=== PATIENT | female | born 1960 | race Caucasian/White ===

== ENCOUNTER → 2016-08-27 | Outpatient (CLI) | payer BC ==
[~2016-08-27] MED LIST: ASPI81TA28 PO; LPT40 PO
--- NOTE | 2016-08-27 09:21 | DIAGNOSTIC IMAGING REPORT ---
THYROID ULTRASONOGRAPHY CLINICAL HISTORY: Neck swelling/mass. COMPARISON STUDY: None FINDINGS: The right lobe of thyroid measures 51 x 14 x 16 mm. There are 3 predominantly cystic nodules measuring 7 mm, 5 mm, 3 mm in diameter respectively. The left lobe measured 45 x 14 x 7 mm. There is a 2 mm hypoechoic left lobe nodule. There are no pathologic masses identified in the area of clinical concern. IMPRESSION: Multinodular thyroid gland. There are no suspicious nodules by size or morphologic criteria. Electronically signed by: Sterlign Prather M.D. 08/27/2016 9:19 AM Dictated Date/Time: 08/27/2016 9:16 AM
== END | disposition home or self-care (01) ==
LOC: C.ULTR 08:42
PROVIDERS: ATTEND Family Medicine
DX: R22.1 Localized swelling, mass and lump, neck (principal)

== ENCOUNTER → 2017-12-07 | Outpatient (CLI) | payer OTHER ==
--- NOTE | 2017-12-07 19:59 | DIAGNOSTIC IMAGING REPORT ---
TWO VIEW CHEST CLINICAL HISTORY: Bronchitis. FINDINGS: PA and lateral chest radiographs are compared to study dated 12/11/2014. The cardiomediastinal silhouette is unremarkable. The lungs and pleural spaces are clear. There is no pneumothorax. The bony thorax appears intact. IMPRESSION: No active disease in the chest. Electronically signed by: Jameson Gonzalez M.D. 12/07/2017 7:58 PM Dictated Date/Time: 12/07/2017 7:57 PM
== END | disposition home or self-care (01) ==
LOC: C.RAD 19:19
PROVIDERS: ATTEND Family Medicine
DX: J40 Bronchitis, not specified as acute or chronic (principal)

== ENCOUNTER 2024-11-13 09:12 | Inpatient (IN) ==
--- NOTE | 2024-11-13 09:57 | Emergency Department Note ---
History of Present Illness General Chief complaint: Abdominal Pain Stated complaint: SERVERE ABDOMINAL PAIN Time Seen by Provider: 11/13/24 09:43 History of Present Illness Maximum Pain Intensity: 7 This is a 64-year-old female who presents to the emergency department via private vehicle with complaints of "abdominal pain, blood in stool". Patient went bed last night and felt fine. She woke around 2 AM with severe generalized abdominal pain across the abdomen. She then went to the bathroom and had profuse diarrhea that has continued. She now has a bloody mucousy stool. No history of ulcerative colitis or Crohn's. She takes baby aspirin but no anticoagulants. No close contact with similar symptoms. No fevers. She does feel chilled. No chest pain or shortness of breath. She does have public water. No private well, is on public water. Home Medications Medication Instructions Recorded Confirmed Type amlodipine 5 mg tablet 5 mg PO DAILY 01/12/19 11/13/24 History aspirin 81 mg tablet,delayed 81 mg PO DAILY 01/12/19 11/13/24 History release atorvastatin 40 mg tablet 80 mg PO DAILY 01/12/19 11/13/24 History tirzepatide 15 mg/0.5 mL 15 mg subcut WK 11/13/24 11/13/24 History subcutaneous pen injector (Mounjaro) Allergies Allergy/AdvReac Type Severity Reaction Status Date / Time No Known Allergies Allergy Unknown NONE Verified 02/16/19 07:14 Past Med/Surg History Problem List (Updated 11/13/24 @ 16:52 by Chandler Gill PA-C) Bloody diarrhea (Acute) Abdominal pain, acute, generalized (Acute) Colitis (Acute) Encounter for pre-operative examination Fibroids (Chronic) Menorrhagia (Chronic) Transient ischemic attack (TIA) (Acute) Medical History (Updated 11/13/24 @ 16:52 by Chandler Gill PA-C) Morbid obesity Hypothyroidism Hearing deficit BL HENDERSON Hypertension Hyperlipidemia Surgical History History of total abdominal hysterectomy and bilateral salpingo-oophorectomy History of tubal ligation History of tonsillectomy History of colonoscopy Family History Brother Family hx of colon cancer Social History Smoking Status: Never smoker Second Hand Exposure: No; Do You Dip or Chew Tobacco: No; Hx Alcohol Use: No Hx Substance Use: No Preferred Language: Malaysian Communication Ability: Effective Software Quality Tester Required: No Beliefs That Will Affect Care: None Current Living Situation: Spouse Other Information That Helps Us Care for You: No Feels Safe at Home: Yes Safety Concerns: Feels Safe At This Time Assistive Devices: Glasses and Hearing Aid - Bilateral Review of Systems A total of 10 systems reviewed and were otherwise negative Physical Exam Vital Signs Vital Signs - 24 hr 11/13/24 09:27 11/13/24 09:49 11/13/24 10:00 Temperature 36.4 C L Temperature Source Oral Pulse Rate 105 H 96 H Pulse Rate [Apical] 89 Respiratory Rate 18 18 Respiratory Effort / Characteristics Non-Labored Spontaneous Respiratory Depth Normal Blood Pressure 172/120 H Blood Pressure [Right Arm] 153/76 H Blood Pressure Mean 137 Blood Pressure Mean [Right Arm] 101 Blood Pressure Position Sitting Blood Pressure Position [Right Arm] Semi-fowlers Pulse Oximetry 99 97 Pulse Oximetry [Right Index Finger] Oxygen Delivery Method Room Air Room Air Oxygen Delivery Method [Right Index Finger] Sepsis Recent Fever Within 48 Hours No Sepsis New/Unexplained Change in Mental Status No Sepsis Action Taken by Nursing No Action Required 11/13/24 11:07 11/13/24 13:00 11/13/24 14:04 Temperature Temperature Source Pulse Rate Pulse Rate [Apical] 96 H 100 H Respiratory Rate 21 19 Respiratory Effort / Characteristics Non-Labored Spontaneous Non-Labored Spontaneous Respiratory Depth Normal Normal Blood Pressure Blood Pressure [Right Arm] 166/87 H 162/96 H Blood Pressure Mean Blood Pressure Mean [Right Arm] 113 118 Blood Pressure Position Blood Pressure Position [Right Arm] Semi-fowlers Semi-fowlers Pulse Oximetry 99 94 Pulse Oximetry [Right Index Finger] 97 Oxygen Delivery Method Room Air Room Air Oxygen Delivery Method [Right Index Finger] Room Air Sepsis Recent Fever Within 48 Hours Sepsis New/Unexplained Change in Mental Status Sepsis Action Taken by Nursing VITAL SIGNS - Vital signs and nursing notes were reviewed. Hypertensive, stable and afebrile GENERAL - 64-year-old female appearing her stated age who is in no acute distress but appears to be in pain. Communicates well with provider and answers questions appropriately. SKIN - Without rashes. No meningeal or petechial rash. HEAD - NC/AT. EYES - PERRL with EOMI bilaterally. Sclera anicteric. EARS - No deformities of external structures noted on gross examination bilaterally. External auditory canals without discharge or otorrhea. Tympanic membranes pearly viera without retraction or bulging. No fluid or purulent material visualized behind the TM. Handle of malleus, umbo, cone of light, pars tensa/flaccid all easily visualized. NOSE - Midline and without cyanosis. No epistaxis or purulent drainage noted. Septum midline without deviation or septal hematoma noted. MOUTH/OROPHARYNX - Without perioral cyanosis. NECK - Neck with FROM. No nuchal rigidity. LUNGS - CTA CARDIAC - RRR ABDOMEN - Abdominal contour normal without pulsations or visible masses. BS normoactive all four quadrants. Generalized abdominal tenderness to palpation. No guarding. No rigidity. EXTREMITIES - No clubbing or peripheral cyanosis. +5/5 strength noted in UE/LE bilaterally. NEUROLOGIC - Cranial nerves II through XII grossly intact. PSYCH -alert, oriented and pleasant on exam Course Administered Medications Sodium Chloride (Nss) 1,000 mls @ 100 mls/hr IV .Q10H KANDICE Stop: 11/14/24 09:59 Last Admin: 11/13/24 14:13 Dose: 100 mls/hr Documented By: JENNIFER Ceftriaxone Sodium (Rocephin) 2,000 mg in 50 mls @ 100 mls/hr IV Q24H KANDICE Stop: 11/23/24 15:29 Last Admin: 11/13/24 16:09 Dose: 100 mls/hr Documented By: ARGENISF Discontinued Medications Sodium Chloride (Nss) 1,000 mls @ 999 mls/hr IV .Q1H1M ONE Stop: 11/13/24 10:57 Last Infusion: 11/13/24 12:04 Dose: Infused Documented By: Admin: 11/13/24 10:16 Dose: 999 mls/hr Documented By: JONATAN Ioversol (Optiray 320 100ml) 93 ml IV ONCE ONE Stop: 11/13/24 11:02 Last Admin: 11/13/24 11:02 Dose: 93 ml Documented By: FABIOLA Morphine Sulfate (Morphine Sulfate 4 Mg/Ml 1 Ml Carp\\Vial) 2 mg IV NOW STA Stop: 11/13/24 12:30 Last Admin: 11/13/24 12:36 Dose: 2 mg Documented By: JONATAN Ondansetron HCl (Ondansetron Inj 2 Mg/Ml 2 Ml Vial) 4 mg IV NOW STA Stop: 11/13/24 09:58 Last Admin: 11/13/24 10:16 Dose: 4 mg Documented By: JONATAN Medical Decision Making Laboratory Data 11/13/24 09:48 11/13/24 09:48 Lab Results 11/13/24 11/13/24 11/13/24 Range/Units 09:48 10:32 11:29 WBC 13.06 H (4.8-10.8) K/ul RBC 5.58 H (4.20-5.40) M/uL Hgb 16.1 H (12.0-16.0) g/dl Hct 46.5 (37.0-47.0) % MCV 83.3 (80.0-100.0) fL MCH 28.9 (25.0-34.0) pg MCHC 34.6 (32.0-36.0) g/dL RDW Std Deviation 41.3 (36.4-46.3) fL RDW Coeff of Delon 13.6 (11.5-14.5) % Plt Count 329 (130-400) K/uL MPV 10.6 (9.4-12.4) fL Immature Gran % (Auto) 0.2 % Neut % (Auto) 90.3 % Lymph % (Auto) 6.8 % Canadian % (Auto) 2.5 % Eos % (Auto) 0.0 % Baso % (Auto) 0.2 % Neut # (Auto) 11.80 H (1.40-6.50) K/uL Lymph # (Auto) 0.89 L (1.20-3.40) K/uL Canadian # (Auto) 0.32 (0.11-0.59) K/uL Eos # (Auto) 0.00 (0.00-0.50) K/uL Baso # (Auto) 0.02 (0.00-0.20) K/uL Immature Gran # (Auto) 0.03 (0.01-0.20) K/uL PT Cancelled 10.4 INR Cancelled 1.0 APTT Cancelled 26 PTT Ratio Cancelled 1.0 Sodium 138 (136-145) mmol/L Potassium 4.0 (3.5-5.1) mmol/L Chloride 105 (98-107) mmol/L Carbon Dioxide 24 (21-32) mmol/L Anion Gap 9 (3-11) BUN 18 (6-23) mg/dl Creatinine 0.75 (0.6-1.2) mg/dl Est Cr Clr Drug Dosing 85.9 ml/min eGFR 89.96 BUN/Creatinine Ratio 24.0 H (10-20) Glucose 121 H (70-99(Fasting)) mg/dl Lactate 0.9 (0.4-2.0) mmol/L Calcium 9.9 (8.6-10.3) mg/dl Magnesium 2.0 (1.7-2.4) mg/dl Total Bilirubin 0.8 (0.2-1.0) mg/dl AST 30 (13-39) U/L ALT 33 (7-52) U/L Alkaline Phosphatase 73 (34-104) U/L Total Protein 8.2 (6.0-8.3) gm/dl Albumin 4.8 (3.4-5.0) gm/dl Globulin 3.4 (2.5-4.0) gm/dl Albumin/Globulin Ratio 1.4 (0.9-2) Lipase 38 (11-82) U/L Stl C. cayetanensis PCR Not Detected (NotDetected) Stool Rotavirus A PCR Not Detected (NotDetected) Stl Adenov F 40/41 PCR Not Detected (NotDetected) Stool Astrovirus (PCR) Not Detected (NotDetected) Stool Campylobacter PCR Not Detected (NotDetected) Stl C. diff Tox B Gene Negative Cdiff Gene (Neg) Stool Cryptosporidium PCR Not Detected (NotDetected) Stl E.coli Shiga Tox PCR Not Detected (NotDetected) Stl Enterotoxigenic E PCR Not Detected (NotDetected) Stool EPEC (PCR) Not Detected (NotDetected) Stool EAEC (PCR) Not Detected (NotDetected) Stl E. histolytica PCR Not Detected (NotDetected) Stool Giardia Lamblia PCR Not Detected (NotDetected) Stool Salmonella PCR Not Detected (NotDetected) Stool Sapovirus (PCR) Not Detected (NotDetected) Stl P. shigelloides PCR Not Detected (NotDetected) Stl Shigella/EIEC PCR Not Detected (NotDetected) St Y.enterocolitica PCR Not Detected (NotDetected) Stool Vibrio (PCR) Not Detected (NotDetected) Stl Vibrio cholerae PCR Not Detected (NotDetected) Stl Norovirus GI/GII PCR Not Detected (NotDetected) Imaging Data Radiologist's Impression: Abdomen/Pelvis CT 11/13/24 09:[address] WITH IV CONTRAST CT DOSE: 1249.02 mGy.cm HISTORY: Acute generalized abdominal pain abd pain, frequent diarrhea, blood in stool TECHNIQUE: Multiaxial CT images of the abdomen and pelvis were performed following the IV administration of 93 cc of Optiray, A dose lowering technique was utilized adhering to the principles of ALARA. COMPARISON STUDY: None. FINDINGS: Mild cardiomegaly. Clear lung bases. There is no pneumatosis or pneumoperitoneum. Unremarkable spleen, pancreas and adrenal glands. Cholelithiasis without CT evidence of acute cholecystitis. Patency of the hepatic and portal veins. There are a few scattered hepatic cysts. No solid liver lesions are seen. Unremarkable kidneys. There is no hydronephrosis. 11 mm exophytic cyst of the anterior interpolar right kidney. Decompressed urinary bladder with mild wall thickening. Hysterectomy. Atherosclerosis of the aorta without aneurysm. There is no lymphadenopathy. Tiny hiatal hernia. There is no bowel obstruction. There is wall thickening noted throughout the transverse and descending colon with mild adjacent pericolonic stranding. No CT evidence of acute appendicitis. Tiny fat filled umbilical hernia. No acute fracture is seen. IMPRESSION: 1. Findings compatible with a mild nonspecific likely infectious or inflammatory colitis. 2. No bowel obstruction or pneumoperitoneum. 3. Cholelithiasis. ACT 112: Negative or not required by law. The above report was generated using voice recognition software. It may contain grammatical, syntax or spelling errors. Electronically signed by: Walt Robles M.D. 11/13/2024 11:50 AM MDM Narrative Patient was seen and evaluated as above in room B11b. Review was performed of triage nursing notes and vital signs. After obtaining a thorough history and physical examination the above work up was performed. Patient presents to us today for evaluation of abdominal pain and diarrhea. There is no blood in the stool she notes, bright red. She appears to be in pain on examination. She is tender in the abdomen. No chest pain or shortness of breath. No anticoagulant use. Options of care were discussed with the patient. IV access was established. Labs were drawn. Initially patient wanted to hold off on IV analgesia and was receptive to IV fluids and IV Zofran. Later in her stay she did ask for something for pain and was given IV morphine. There is leukocytosis 13.06. There is what appears to be some hemoconcentration with hemoglobin of 16.1, no previous to compare in our EMR. Coags normal. No evidence of kidney or liver failure. Evidence of dehydration noting BUN/creatinine ratio 24. Hyperglycemia 121. Magnesium normal. Lactate within normal range, making ischemic process less likely. Lipase normal. Stool studies negative. Patient continues with abdominal pain. CT scan was obtained. Results as above. Findings compatible with mild nonspecific likely infectious or inflammatory colitis. With patient's continued and worsening symptoms, I do believe that further evaluation and management in the inpatient setting is warranted. Case discussed with the hospitalist service. Please refer to further documentation regarding her stay. GCS: 15 In the evaluation and treatment of this patient the following differential diagnoses were entertained: Viral gastroenteritis, bacterial gastroenteritis, ischemic colitis, electrolyte disturbance, dehydration, anemia, acute GI bleed among others Impression & Plan Colitis, Abdominal pain, acute, generalized, Bloody diarrhea Discharge Plan Visit Data Chief Complaint: Abdominal Pain Stated Complaint: SERVERE ABDOMINAL PAIN ED Provider: Dilip Gautam ED Midlevel Provider: Chandler Gill Discharge Problem: Colitis, Abdominal pain, acute, generalized, Bloody diarrhea Patient Disposition: Admitted As Inpatient Condition: Good Discharge Instructions Interventions: ED Discharge Assessment Last Done: 11/13/24 14:45
[2024-11-13] MEDS: ONDANSETRON INJ 2 MG/ML 2 ML VIAL IV STA (10:16)
[2024-11-13] MEDS: SODIUM CHLORIDE 0.9% 1,000 ML IV ONE (10:16)
[2024-11-13 10:19] LABS: Hematocrit (blood only) 46.5 % (37.0-47.0); Hemoglobin 16.1 g/dl (12.0-16.0); Mean Corpuscular Hemoglobin 28.9 pg (25.0-34.0); Mean Corpuscular Hgb Conc 34.6 g/dL (32.0-36.0); Mean Corpuscular Volume 83.3 fL (80.0-100.0); Mean Platelet Volume 10.6 fL (9.4-12.4); Platelet Count 329 K/uL (130-400); RDW Coefficient of Variation 13.6 % (11.5-14.5); RDW Standard Deviation 41.3 fL (36.4-46.3); Red Blood Count 5.58 M/uL (4.20-5.40); White Blood Count 13.06 K/ul (4.8-10.8)
[2024-11-13 10:36] LABS: Albumin Level 4.8 gm/dl (3.4-5.0); Bilirubin,Total 0.8 mg/dl (0.2-1.0); Calcium 9.9 mg/dl (8.6-10.3)
[2024-11-13 10:42] LABS: Albumin Globulin Ratio 1.4 (0.9-2); Creatinine Clr Calc Pharmacy 85.9 ml/min; Globulin 3.4 gm/dl (2.5-4.0); Total Protein 8.2 gm/dl (6.0-8.3)
[2024-11-13 10:57] LABS: Basophils # (auto) 0.02 K/uL (0.00-0.20); Basophils % (auto) 0.2 %; Immature Granulocytes # (auto) 0.03 K/uL (0.01-0.20); Immature Granulocytes % (auto) 0.2 %; Lymphocytes # (auto) 0.89 K/uL (1.20-3.40); Lymphocytes % (auto) 6.8 %; Monocytes # (auto) 0.32 K/uL (0.11-0.59); Monocytes % (auto) 2.5 %; Neutrophils % (auto) 90.3 %
[2024-11-13] MEDS: OPTIRAY 320 100ml IV ONE (11:02)
--- NOTE | 2024-11-13 11:52 | CT Scan Report ---
ABDOMEN AND PELVIS CT WITH IV CONTRAST CT DOSE: 1249.02 mGy.cm HISTORY: Acute generalized abdominal pain abd pain, frequent diarrhea, blood in stool TECHNIQUE: Multiaxial CT images of the abdomen and pelvis were performed following the IV administrat ion of 93 cc of Optiray, A dose lowering technique was utilized adhering to the principles of ALARA. COMPARISON STUDY: None. FINDINGS: Mild cardiomegaly. Clear lung bases. There is no pneumatosis or pneumoperitoneum. Unremarka ble spleen, pancreas and adrenal glands. Cholelithiasis without CT evidence of acute cholecystitis. P atency of the hepatic and portal veins. There are a few scattered hepatic cysts. No solid liver lesio ns are seen. Unremarkable kidneys. There is no hydronephrosis. 11 mm exophytic cyst of the anterior interpolar rig ht kidney. Decompressed urinary bladder with mild wall thickening. Hysterectomy. Atherosclerosis of t he aorta without aneurysm. There is no lymphadenopathy. Tiny hiatal hernia. There is no bowel obstruction. There is wall thickening noted throughout the neves sverse and descending colon with mild adjacent pericolonic stranding. No CT evidence of acute appendi citis. Tiny fat filled umbilical hernia. No acute fracture is seen. IMPRESSION: 1. Findings compatible with a mild nonspecific likely infectious or inflammatory colitis. 2. No bowel obstruction or pneumoperitoneum. 3. Cholelithiasis. ACT 112: Negative or not required by law. The above report was generated using voice recognition software. It may contain grammatical, syntax o r spelling errors. Electronically signed by: Walt Robles M.D. 11/13/2024 11:50 AM
[2024-11-13 12:05] LABS: Partial Thromboplastin Time 26 Seconds (21-31); Prothrombin Time 10.4 Seconds (9.0-12.0)
[2024-11-13 12:18] LABS: Adenovirus F 40/41 PCR Not Detected (NotDetected); Astrovirus PCR Not Detected (NotDetected); Campylobacter PCR Not Detected (NotDetected); Cryptosporidium PCR Not Detected (NotDetected); Cyclospora cayetanensis PCR Not Detected (NotDetected); Entamoeba histolytica PCR Not Detected (NotDetected); Enteroaggregative E.coli(EAEC) Not Detected (NotDetected); Enteropathogenic E.coli (EPEC) Not Detected (NotDetected); Enterotoxigenic E.coli (ETEC) Not Detected (NotDetected); Giardia lamblia PCR Not Detected (NotDetected); Norovirus GI/GII PCR Not Detected (NotDetected); Plesiomonas shigelloides PCR Not Detected (NotDetected); Rotavirus A PCR Not Detected (NotDetected); Salmonella PCR Not Detected (NotDetected); Sapovirus PCR Not Detected (NotDetected); Shiga-like Toxin E.coli (STEC) Not Detected (NotDetected); Shigella/Enteroinvasive E.coli Not Detected (NotDetected); Vibrio cholerae PCR Not Detected (NotDetected); Vibrio species PCR Not Detected (NotDetected); Yersinia enterocolitica PCR Not Detected (NotDetected)
[2024-11-13] MEDS: MoRPHine SULFATE 4 MG/ML 1 ML CARP\\VIAL IV STA (12:36)
--- OUTSIDE RECORDS SUMMARY | 2024-11-13 13:05 | External Medical Summary ---
Author Name Unknown Address Unknown Organization : Laboratory Report Ordering Provider Test Date Status Jaylon Han Elva 06/25/2024 10:21:00 Fin al Observation Date Value Abnormality Reference (Units ) Status Non HDL Chol 06/26/2024 12:11:00 121 <130 (m g/dL (calc)) Final For patients with diabetes p padmini 1 major ASCVD risk
factor, treating to a non-HDL-C goal of <100 mg/dL
(LDL-C of <70 mg/dL) is considered a therapeutic
option.

Specimen Received d/t: 06/25/2024 22:53:00

Lab test performed by:
[facility], [facility]
[address]
[place] [phone]
Elio Orantes MD Cholesterol [Mass/volume] in Serum or Plasma 06/26/2024 12:11:00 156 <200 (mg/dL) Final
Specimen Received d/t: 06/25/2024 22:53:00

Lab test performed by:
[facility], [facility]
[address]
[place] [phone]
Elio Orantes MD Cholesterol.total/Cholestero l in HDL [Mass Ratio] in Serum or Plasma 06/26/2024 12:11:00 4.5 <5 .0 ((calc)) Final
Specimen Received d/t: 06/25/2024 22:53:00

Lab test performed by:
[facility], [facility]
[address]
[place] [address]
Elio Orantes MD Triglyceride [Mass/volume] in Serum or Plasma 06/26/2024 12:11:00 167 Above high normal <150 (mg/dL) Fin al
Specimen Received d/t: 06/25/2024 22:53:00

Lab test performed by:
[facility], [facility]
[address]
[place] [address]
Elio Orantes MD Cholesterol in HDL [Mass/volume] in Serum or Plasma 06/26/2024 12:11:00 35 Below low normal > OR = 50 (mg/dL) Final
Specimen Received d/t: 06/25/2024 22:53:00

Lab test performed by:
[facility], [facility]
[address]
[place] [address]
Elio Orantes MD LDL Chol 06/26/2024 12:11:00 94 (mg/dL (ca lc)) Final Reference range: <100
<b r/>Desirable range <100 mg/dL for primary prevention;
<70 mg/dL for patients with CHD or diabetic patients
with > or = 2 CHD risk factors.

LDL-C is now calculated using the Syed-Andre
calculation, which is a validated novel method providing
better accuracy than the Friedewald equation in the
estimation of LDL-C.
Syed MACE et al. NESSA. 2013;310(19): 2061- 2068
(http://[employer]/faq/BKL326)

Specimen Received d/t: 06/25/2024 22:53:00

Lab test performed by:
[facility], [facility]
[address]
[place] [phone]
Elio Orantes MD Performing Location
--- OUTSIDE RECORDS SUMMARY | 2024-11-13 13:05 | External Medical Summary ---
Author Name Unknown Address Unknown Organization : Laboratory Report Ordering Provider Test Date Status Jaylon Han Elva 06/25/2024 10:21:00 Fin al Observation Date Value Abnormality Reference (Units ) Status eAG (mmol/L) 06/26/2024 12:11:00 6.8 (mmol/L ) Final FASTING:UNKNOWN

FAS TING: UNKNOWN

Specimen Received d/t: 06/25/2024 22:53:00

Lab test performed by:
[facility], [facility]
[address]
[place] [phone]
Elio Orantes MD eAG (mg/dL) 06/26/2024 12:11:00 123 (mg/dL) Final
Specimen Received d/t: 06/25/2024 22:53:00

Lab test performed by:
[facility], [facility]
[address]
[place] [phone]
Elio Orantes MD Hemoglobin A1c/Hemoglobin.total in Blood 06/26/2024 12:11:00 5.9 Above high normal <5.7 (% of total Hgb) Final For someone without known di abetes, a hemoglobin
A1c value between 5.7% and 6.4% is consistent with
prediabetes and should be confirmed with a
follow-up test.

For someone with known diabetes, a value <7%
indicates that their diabetes is well controlled. A1c
targets should be individualized based on duration of
diabetes, age, comorbid conditions, and other
considerations.

This assay result is consistent with an increased risk
of diabetes.

Currently, no consensus exists regarding use of
hemoglobin A1c for diagnosis of diabetes for children.

Specimen Received d/t: 06/25/2024 22:53:00

Lab test performed by:
[facility]
[address] [place] [address]
Elio Orantes MD Performing Location
--- OUTSIDE RECORDS SUMMARY | 2024-11-13 13:05 | External Medical Summary | Continuity of Care Document ---
Author Name Unknown Organization [address] Address [address] [place] [address] [id number] Care Team Providers Care Afterschool Babysitter Name Role Phone Emely Zhang Primary Care P hysician [phone] Encounter [facility] [id number] Date(s): 06/27/24 - 06/27/[address], [address] [phone] Encounter Diagnosis Diabetes(Discharge Diagnosis) - 04/09/24 Discharge Disposition: Home or Self Care Attending Physician: Jaylon Stevenson DO, Mariana Annette Referring Physician: Jaylon Stevenson DO, Mariana Annette Allergies, Adverse Reactions, Alerts Substance Criticality Severity Reaction Reaction Severity Status predniSONE Unable to assess criticality Moderate Irritation Active Assessment and Plan Extracted from: Title:Office Visit Note Author:Jaylon Stevenson DO, Mariana Annette Date:06/27/24 1. Diabetes STATUS: Chronic stable. DATA: Labs reviewed. GOAL: Maintain stability. PLAN: Inc mounjaro to 7.5mg to aid in weight loss efforts (can titrate up if tolerated), recheck A1c in 6 mo Immunizations Given and Recorded Vaccine Date Status Refusal Reason SARS-CoV-2 (COVID-19) mRNA-1273 vaccine 1 07/24/21 Recorded SARS-CoV-2 (COVID-19) mRNA-1273 vaccine 2 11/17/20 Recorded SARS-CoV-2 (COVID-19) mRNA-1273 vaccine 3 10/15/20 Recorded influenza virus vaccine, inactivated 04/07/21 Justen rded zoster vaccine, inactivated 08/08/20 Recorded zoster vaccine, inactivated 03/12/20 Recorded tetanus/diphtheria/pertuss, acel (Tdap) 05/21/13 R ecorded 1Result Comment: 2022-03-23: Historical information-source unspecified 2Result Comment: 2022-03-23: Historical information-source unspecified 3Result Comment: 2022-03-23: Historical information-source unspecified Medications amLODIPine 5 mg oral tablet Start: 03/27/24 4:28:00 PM EDT, 1 tab, PO, Daily, Disp# 90 tab, Refills: 3, Pharmacy: [id number] Start Date: 03/27/24 Status: Ordered aspirin 81 mg oral tablet, chewable Start: 12/26/14 12:44:00 PM EDT, 1 tab, PO, Daily, Disp# 30 tab, Refills: 11 Start Date: 12/26/14 Status: Ordered atorvastatin 80 mg oral tablet Start: 04/09/24 5:40:00 PM EDT, 1 tab, PO, Daily, Disp# 90 tab, Refills: 3, Pharmacy: [id number] Start Date: 04/09/24 Status: Ordered clobetasol 0.05% topical ointment Start: 03/11/23 1:53:00 PM EDT, 1 appl, topical, bid, Disp# 30 g, Pharmacy: [id number] Start Date: 03/11/23 Status: Ordered Mounjaro 7.5 mg/0.5 mL subcutaneous solution Start: 06/27/24 4:00:00 PM EST, 7.5 mg =, subQ, q7days, Disp# 2 mL, Pharmacy: [id number] Start Date: 06/27/24 Status: Ordered Mental Status 06/27/24 Barriers to Learning one year None evide nt Mandatory Health Literacy Documentation Yes Health Literacy Communication Barriers N ever Primary Language Macanese Problem List Condition Confirmation Course Effective Dates Status H ealth Status Informant Adhesive capsulitis of right shoulder Confirmed Active Benign essential hypertension Confirmed Active TIA involving carotid artery Confirmed Active Cervical radiculopathy Confirmed Active Diabetes Confirmed Active Hyperlipidemia Confirmed Active Hypothyroidism Confirmed Active 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 BI-RADS Category: 2- Benign 2Multinodular thyroid gland. There are no suspicious nodules by size or morphologic. 3all nodules are from 2mm-7mm in size 4with Dr. Burton 5Neuroma removed from right foot Vital Signs Most recent to oldest [Reference Range]: 1 Height 155 cm (06/27/24 3:25 PM) Patient Weight 105.4 kg (06/27/24 3:25 PM) Body Mass Index 43.87 kg/m2 (06/27/24 3:25 PM) Temperature [36.5-37.9 DegC] 36.4 DegC *LOW* (06/27/24 3:25 PM) Heart Rate 87 bpm (06/27/24 3:25 PM) Respiratory Rate 16 br/min (06/27/24 3:25 PM) Blood Pressure 100/70mmHg (06/27/24 3:25 PM) Cuff Pulse Pressure 30 mmHg (06/27/24 3:25 PM) Social History Social History Type Response Tobacco Former smoker, Cigar ettes 1 Smoking Status Never smoked cigaret minda Sex Female Sex Representation Female (finding) 1Quit 8-9 years ago FCM Outpt Note * Jaylon Stevenson DO, Mariana Annette: PERFORM Event Display: FCM Outpt Note Authored Date: Chief Complaint follow up on medication - labs results History of Present Illness Diabetes Type II, controlled without complication - A1c 6.5 in February, now 5.9 - current regimen: Mounjaro 5 mg - notes some nausea and constipation - on statin therapy - adherent to present medication regimen - dietary review: a lot of turkey, more fruits and vegetables, less ice cream. Small portions - exercise regimen: walking Physical Exam Vitals & Measurements T: 36.4 °C HR: 87 (Monitored) RR: 16 BP: 100/70 SpO2: 97% HT: 155 cm WT: 105.400 kg (Dosing) WT: 105.4 kg BMI: 43.87 PHQ2 Data (Data Documented on:06/27/2024 15:25) Emotional health assessment NEGATIVE General: _Alert and oriented, No acute distress Cardiovascular: _Normal rate, Regular rhythm, No murmur, No gallop. Respiratory: _Lungs are clear to auscultation, Respirations are non-labored, Breath sounds are equal Psych: Mood-affect congruence. Speech is of normal pace and content Assessment/Plan 1. Diabetes STATUS: Chronic stable. DATA: Labs reviewed. GOAL: Maintain stability. PLAN: Inc mounjaro to 7.5mg to aid in weight loss efforts (can titrate up if tolerated), recheck A1c in 6 mo Attestation Time spent: Pre-visit planning: _5 [id number] visit: _30 Post-visit (orders/documentation/coordination of care): 4 Total visit time: _39 Problem List/Past Medical History Ongoing Adhesive capsulitis of right shoulder Benign essential hypertension Cervical radiculopathy Diabetes Hyperlipidemia Hypothyroidism Greene's neuroma of right foot Right shoulder pain TIA involving carotid artery Weight disorder Resolved Atypical pneumonia BENIGN NEOPLASM OF SKIN, SITE UNSPECIFIED Eustachian tube dysfunction Foot pain, left Foot pain, right Hand injury Hypertension ROUTINE GENERAL MEDICAL EXAMINATION AT A HEALTH CARE FACILITY Screening for breast cancer Procedure/Surgical History •Mammogram| Service Date: 05/18/2019•Ultrasound scan of thyroid| Service Date: 08/27/2016•Colonoscopy| Service Date: 05/30/2013•Hysterectomy| Service Date: 2008•Tubal ligation| Service Date: 1991•Tonsillectomy| Service Date: 1985•Foot Medications amLODIPine(amLODIPine 5 mg oral tablet), 1 tab, PO, Daily aspirin(aspirin 81 mg oral tablet, chewable), 81 mg= 1 tab, PO, Daily, 11 refills atorvastatin(atorvastatin 80 mg oral tablet), 1 tab, PO, Daily clobetasol topical(clobetasol 0.05% topical ointment), 1 appl, topical, bid tirzepatide(Mounjaro 7.5 mg/0.5 mL subcutaneous solution), 7.5 mg, subQ, q7days Allergies predniSONE (Moderate) Irritation Social History Smoking Status Never smoked cigarettes Alcohol - Denies Alcohol Use Exercise - Does not exercise Tobacco - Denies Tobacco Use Use:Former smoker Type:Cigarettes - Comments: Quit 8-9 years ago Family History Cancer: Mother. Cancer of colon: Brother. Heart attack: Father. Heart failure: Father. Kidney cancer, primary, with metastasis from kidney to other site: Brother. Health Status Family Member(s) Immunizations Vaccine Date Status SARS-CoV-2 (COVID-19) mRNA-1273 vaccine 07/24/2021 Recorded Comments : 2022-03-23: Historical information-source unspecified influenza virus vaccine, inactivated 04/07/2021 Recorded SARS-CoV-2 (COVID-19) mRNA-1273 vaccine 11/17/2020 Recorded Comments : 2022-03-23: Historical information-source unspecified SARS-CoV-2 (COVID-19) mRNA-1273 vaccine 10/15/2020 Recorded Comments : 2022-03-23: Historical information-source unspecified zoster vaccine, inactivated 08/08/2020 Recorded zoster vaccine, inactivated 03/12/2020 Recorded tetanus/diphtheria/pertuss, acel (Tdap) 05/21/2013 Recorded Recommendations Health Maintenance Pending (in the next year) OverDue Colorectal Cancer Screening due 05/28/23 and every 10 year Adult Influenza Vaccine due 01/15/24 and every 1 year Due Adult COVID-19 Vaccination due 06/27/24 Unknown Frequency Adult Social Determinants of Health Screening due 06/27/24 Unknown Frequency Adult Tdap/Td Vaccine due 06/27/24 Unknown Frequency Diabetic Eye Exam due 06/27/24 Unknown Frequency Hepatitis C Screening due 06/27/24 One-time only Pneumococcal Vaccine Adults and Adolescents with Chronic Illness due 06/27/24 One-time only Due In Future Breast Cancer Screening not due until 05/17/25 and every 731 day Diabetes Management A1c not due until 06/26/25 and every 366 day Satisfied (in the past 1 year) Satisfied Body Mass Index on 06/27/24. Satisfied by BOB Wallis Angela Electronic Signature on File Electronically Reviewed/Signed by: Emely Stevenson DO Author Signature Dt/Tm:06/27/2024 04:14 PM Department of Family Medicine [facility] Patient Care team information Care Team Personnel Name: Jaylon Stevenson DO, Mariana Annette Position: Physician - Family Med Member Role: Primary Care Provider Address: [address] [place] [address] Name: JUANITA Gomez, Olivia Waldron Position: Physician - Podiatry Member Role: Lifetime Relationship Address: [address] [place] [address] [place] Care Team Related Persons Name: RANDALL PLATA Name: RANDALL PLATA"
--- OUTSIDE RECORDS SUMMARY | 2024-11-13 13:05 | External Medical Summary | Continuity of Care Document ---
Author Name Unknown Organization [address] Address [address] [place] [address] [place], [place] [id number] Care Team Providers Care Bander Hand Name Role Phone Emely Zhang Primary Care swetha [phone] En[facility] [id number] Date(s): 09/26/24 - 09/26/[address], [address] [address] [phone] Encounter Diagnosis Body mass index [BMI] 37.0-37.9, adult(Discharge Diagnosis) - 09/26/24 Diabetes(Discharge Diagnosis) - 09/26/24 Discharge Disposition: Home or Self Care Attending Physician: Jaylon Stevenson DO, Mariana Annette Referring Physician: Jaylon Stevenson DO, Mariana Annette Encounter Type: Clinic Allergies, Adverse Reactions, Alerts Substance Criticality Severity Reaction Reaction Severity Status predniSONE Unable to assess criticality Moderate Irritation Active Assessment and Plan Extracted from: Title:Office Visit Note Author:Jaylon Stevenson DO, Mariana Annette Date:09/26/24 1. Diabetes Increase mounjaro to 15mg weekly to aid in weight management discussed diet (add more protein) and exercise (add weights) recheck labs in 6 months Immunizations Given and Recorded Vaccine Date Status [...] unspecified 3Result Comment: 2022-03-23: Historical information-source unspecified Mental Status 09/26/24 Barriers to Learning one year None evide nt Mandatory Health Literacy Documentation Yes Health Literacy Communication Barriers N ever Primary Language German Problem List Condition Confirmation Course Effective Dates [...] Diagnosis Diagnosis Type Effective Dates Health Status Cl inical Service Informant Body mass index [BMI] 37.0-37.9, adult Discharge Diagnosis 09/26/24 Non-Specified Diabetes Discharge Diagnosis 09/26/24 Non-Specified Procedures Procedure Date Related Diagnosis Body [...] oldest [Reference Range]: 1 Height 155 cm (09/26/24 2:10 PM) Patient Weight 90 kg (09/26/24 2:10 PM) Body Mass Index 37.46 kg/m2 (09/26/24 2:10 PM) Heart Rate 97 bpm (09/26/24 2:10 PM) Respiratory Rate 20 br/min (09/26/24 2:10 PM) Blood Pressure 120/75mmHg (09/26/24 2:10 PM) Social History Social History Type Response Tobacco Former smoker, Cigar ettes 1 Smoking Status Never smoked cigaret minda Sex Female Sex Representation Female (finding) 1Quit 8-9 years ago FCM Outpt Note * Jaylon Stevenson DO, Mariana Annette: PERFORM Event Display: FCM Outpt Note Authored Date: [id number] Chief Complaint DM check - had recent labs, discuss Mounjaro and measles booster History of Present Illness Diabetes Type II, controlled without complication - A1c 6.5 -> 5.9 -> 5.6 - current regimen: Mounjaro 12.5 mg - notes nausea, like morning sickness - on statin therapy - adherent to present medication regimen - dietary review: fish, fruits and vegetables. Small portions - exercise regimen: walking - has lost about 20 lbs since starting GLP Physical Exam Vitals & Measurements HR: 97 (Monitored) RR: 20 BP: 120/75 SpO2: 98% HT: 155 cm WT: 90 kg WT: 90.000 kg (Dosing) BMI: 37.46 PHQ2 Data (Data Documented on:09/26/2024 14:06) Emotional health assessment NEGATIVE General: _Alert and oriented, No acute distress Cardiovascular: _Normal rate, Regular rhythm, No murmur, No gallop. Respiratory: _Lungs are clear to auscultation, Respirations are non-labored, Breath sounds are equal Psych: Mood-affect congruence. Reports no SI/HI. Speech is of normal pace and content Assessment/Plan 1. Diabetes Increase mounjaro to 15mg weekly to aid in weight management discussed diet (add more protein) and exercise (add weights) recheck labs in 6 months Attestation Time spent: Pre-visit planning: _4 Gugv-ax-[id number] visit: _22 Post-visit (orders/documentation/coordination of care): 4 Total visit time: _30 Problem List/Past Medical History Ongoing Adhesive capsulitis [...] topical ointment), 1 appl, topical, bid tirzepatide(Mounjaro 15 mg/0.5 mL subcutaneous solution), 15 mg, subQ, q7days, 3 refills Allergies predniSONE (Moderate) Irritation Social History Smoking Status Never smoked cigarettes Alcohol - Denies Alcohol Use Exercise - Does not exercise Tobacco - Denies Tobacco Use Use:Former smoker Type:Cigarettes - Comments: Quit 8-9 years ago Intake (IView) Smoking History Cigarette smoker: Never smoked cigarettes Tobacco Product Use: Never used other tobacco products Family History Cancer: Mother. Cancer of colon: [...] every 10 year Adult Influenza Vaccine due 01/16/24 and every 1 year Due Adult Social Determinants of Health Screening due 09/26/24 Unknown Frequency Adult Tdap/Td Vaccine due 09/26/24 Unknown Frequency Diabetic Eye Exam due 09/26/24 Unknown Frequency Hepatitis C Screening due 09/26/24 One-time only Kidney Health Evaluation due 09/26/24 Unknown Frequency Pneumococcal Vaccine Adults and Adolescents with Chronic Illness due 09/26/24 One-time only Seasonal COVID 19 Vaccine due 09/26/24 Unknown Frequency Due In Future Breast Cancer Screening not due until 05/17/25 and every 731 day Diabetes Management A1c not due until 09/20/25 and every 366 day Satisfied (in the past 1 year) Satisfied Body Mass Index on 09/26/24. Satisfied by SHAN Barraza Gillian Electronic Signature on File Electronically Reviewed/Signed by: Emely Stevenson DO Author Signature Dt/Tm:09/26/2024 02:51 PM Department of Family Medicine [facility] Patient Care team information Care Team Personnel Name: Jaylon Stevenson DO, Mariana Annette Position: Physician - Family Med Member Role: Primary Care Provider Address: [address] [place] [address] Telecom: [phone] Name: JUANITA Gomez Christina L Position: Physician - Podiatry Member Role: Lifetime Relationship Address: [address] [place] [address] Telecom: [phone] Care Team Related Persons Name: RANDALL PLATA Name: RANDALL PLATA Insurance Providers Guarantor name: RADHA PLATA Health Plan Information #: 2 Payer: [employer] PCP ONLY Member Number: [id number] Policy Number: NA Group Number: [id number] Health Plan Information #: 1 Payer: [facility] Member Number: [id number] Policy Number: NA Group Number: [id number]"
--- NOTE | 2024-11-13 13:10 | History & Physical Report ---
Date of Service November 13, 2024 Assessment & Plan (1) Colitis: (2) Hypertension: (3) Hyperlipidemia: Plan Ms. Palacios is a 64 y/o female with PMHx of HTN, HLD, Obesity on Mounjaro, and TIA (approx. 15 years ago) who developed acute onset of diffuse abdominal pain and diarrhea around 2 AM this AM. Question possible ischemic colitis #Diffuse Abdominal Pain/Diarrhea - Suspect Ischemic Colitis: -Rapid onset of diffuse abdominal pain at 2 AM with multiple episodes of diarrhea - diarrhea has since stopped but having mucous stools --Does have risk factors for ischemic colitis; also has had constipation with Mounjaro so could contribute with compression of vessels due to pressure increase --Overdue for colonoscopy but no previous issues; no h/o inflammatory bowel diseases --Suspect likely can be managed conservatively based on assessment, labs, imaging -Stool panel negative; CT - wall thickening throughout transverse/descending colon with mild adjacent pericolonic stranding; cholelithiasis without acute cholecystitis -Hold amlodipine - okay to let BP run slightly higher to prevent hypoperfusion; Will continue ASA given question of ischemic component - lactate is normal -Place NPO for now - if pain and symptoms improve can consider possible clears tonight or tomorrow -Morphine PRN for pain control -Rocephin/Metronidazole IV given concern for potential ischemic colitis -Consult GI to see if any additional interventions/needs #HTN: -Hold amlodipine for now and monitor BP - will allow some permission elevations to prevent hypoperfusion #HLD: -Continue Atorvastatin 80 mg daily #Obesity on Mounjaro: -Has been on Mounjaro for several months - recent increase to 15 mg dosing on 10/31 with last dose 11/06. Has had intermittent nausea but no vomiting on medication -Hold Mounjaro DVT Prophylaxis: SCDS CODE Status: FULL Disposition: Hydration, Abx, pain control and monitoring. Advance diet based on assessment. From home. History of Present Illness Chief Complaint: Diffuse Abdominal Pain and Diarrhea Primary Care Provider: Emely Stevenson DO Ms. Palacios is a 64 y/o female with PMHx of HTN, HLD, Obesity on Mounjaro, and TIA (approx. 15 years ago) who developed acute onset of diffuse abdominal pain around 2 AM this AM. She had a couple episodes of diarrhea and then noted BRBPR with mucous stools after. She has not had further diarrhea but continues to have urgency with just mucous. Abdominal pain has never localized and remains diffuse. She has been on Mounjaro since approx. May and gradually increasing the dose. She had the dose increased 10/31 and last injection was on 06 November. She does note that she has had intermittent nausea described like morning sickness without vomiting and fluctuates with constipation/diarrhea while on this medication. She does still have intermittent nausea when the pain is worse but no vomiting today. She does report some hunger feelings but does not eat much since being on Mounjaro. She denies any sick contacts or recent travel. She does endorse feeling cold but no documented fevers. She has not had any similar episodes in the past. She has not had a recent colonoscopy as she was due last year. She has no history of Crohns/Ulcerative Colitis. Allergies Allergy/AdvReac Type Severity Reaction Status Date / Time No Known Allergies Allergy Unknown NONE Verified 02/16/19 07:14 Home Medications Medication Instructions Recorded Confirmed Type amlodipine 5 mg tablet 5 mg PO DAILY 01/12/19 11/13/24 History aspirin 81 mg tablet,delayed 81 mg PO DAILY 01/12/19 11/13/24 History release atorvastatin 40 mg tablet 80 mg PO DAILY 01/12/19 11/13/24 History tirzepatide 15 mg/0.5 mL 15 mg subcut WK 11/13/24 11/13/24 History subcutaneous pen injector (Mounjaro) Past Med/Surg History Problem List (Updated 11/13/24 @ 16:52 by Chandler iGll PA-C) Bloody diarrhea (Acute) Abdominal pain, acute, generalized (Acute) Colitis (Acute) Encounter for pre-operative examination Fibroids (Chronic) Menorrhagia (Chronic) Transient ischemic attack (TIA) (Acute) Medical History (Updated 11/13/24 @ 16:52 by Chandler Gill PA-C) Morbid obesity Hypothyroidism Hearing deficit BL [facility] Hypertension Hyperlipidemia Surgical History History of total abdominal hysterectomy and bilateral salpingo-oophorectomy History of tubal ligation History of tonsillectomy History of colonoscopy Family History Brother Family hx of colon cancer Social History Smoking Status: Never smoker Second Hand Exposure: No; Do You Dip or Chew Tobacco: No; Hx Alcohol Use: No Hx Substance Use: No Preferred Language: Kyrgyz Communication Ability: Effective Fire Protection Fabricator Required: No Beliefs That Will Affect Care: None Current Living Situation: Spouse Other Information That Helps Us Care for You: No Feels Safe at Home: Yes Safety Concerns: Feels Safe At This Time Assistive Devices: None Review of Systems Review of Systems: REVIEW OF SYSTEMS General/Constitutional: +chills; Denies fever Cardiovascular: Denies chest pain, palpitations, edema Respiratory: Denies cough, SOB GI: +nausea, diffuse abdominal pain, diarrhea, BRBPR/mucous stool : Denies dysuria Musculoskeletal: Denies joint/muscle aches, weakness, swelling Neurologic: Denies dizziness/lightheadedness Skin: Denies rash Physical Exam Physical Exam: PHYSICAL EXAM General Appearance: WDWN in NAD but mildly ill appearing who is A&O x 3 HEENT: Head is normocephalic/atraumatic; Hearing grossly intact; Mucous membranes moist Neck: Supple; Trachea midline; Neg JVD Heart: RRR with no M/G/R Lungs: CTA in all lung mello bilaterally; Respirations unlabored; Neg accessory muscle use Abdomen: +bloating; diffuse tenderness but not acute abdomen; Positive BS x 4 quadrants Neurological: Speech clear; Gross motor/sensory function intact; Neg focal neurologic deficits Psychiatric: Appropriate mood/affect Skin: Normal Color; Warm/Dry; Neg rashes Results & Data Results & Data Vital Signs (Past 12 Hours) Vital Signs Temp Pulse Pulse Resp BP BP Pulse Ox 11/13/24 11:07 96 H 21 166/87 H 99 11/13/24 10:00 89 18 153/76 H 97 11/13/24 09:49 96 H 11/13/24 09:27 36.4 C L 105 H 18 172/120 H 99 O2 Del Method 11/13/24 11:07 Room Air 11/13/24 10:00 Room Air 11/13/24 09:49 11/13/24 09:27 Room Air Laboratory Results Laboratory Results - last 24 hr 11/13/24 11/13/24 11/13/24 09:48 10:32 11:29 WBC 13.06 H RBC 5.58 H Hgb 16.1 H Hct 46.5 MCV 83.3 MCH 28.9 MCHC 34.6 RDW Std Deviation 41.3 RDW Coeff of Delon 13.6 Plt Count 329 MPV 10.6 Immature Gran % (Auto) 0.2 Neut % (Auto) 90.3 Lymph % (Auto) 6.8 [place] % (Auto) 2.5 Eos % (Auto) 0.0 Baso % (Auto) 0.2 Neut # (Auto) 11.80 H Lymph # (Auto) 0.89 L [place] # (Auto) 0.32 Eos # (Auto) 0.00 Baso # (Auto) 0.02 Immature Gran # (Auto) 0.03 PT Cancelled 10.4 INR Cancelled 1.0 APTT Cancelled 26 PTT Ratio Cancelled 1.0 Sodium 138 Potassium 4.0 Chloride 105 Carbon Dioxide 24 Anion Gap 9 BUN 18 Creatinine 0.75 Est Cr Clr Drug Dosing 85.9 eGFR 89.96 BUN/Creatinine Ratio 24.0 H Glucose 121 H Lactate 0.9 Calcium 9.9 Magnesium 2.0 Total Bilirubin 0.8 AST 30 ALT 33 Alkaline Phosphatase 73 Total Protein 8.2 Albumin 4.8 Globulin 3.4 Albumin/Globulin Ratio 1.4 Lipase 38 Stl C. cayetanensis PCR Not Detected Stool Rotavirus A PCR Not Detected Stl Adenov F 40/41 PCR Not Detected Stool Astrovirus (PCR) Not Detected Stool Campylobacter PCR Not Detected Stl C. diff Tox B Gene Negative Cdiff Gene Stool Cryptosporidium PCR Not Detected Stl E.coli Shiga Tox PCR Not Detected Stl Enterotoxigenic E PCR Not Detected Stool EPEC (PCR) Not Detected Stool EAEC (PCR) Not Detected Stl E. histolytica PCR Not Detected Stool Giardia Lamblia PCR Not Detected Stool Salmonella PCR Not Detected Stool Sapovirus (PCR) Not Detected Stl P. shigelloides PCR Not Detected Stl Shigella/EIEC PCR Not Detected St Y.enterocolitica PCR Not Detected Stool Vibrio (PCR) Not Detected Stl Vibrio cholerae PCR Not Detected Stl Norovirus GI/GII PCR Not Detected Diagnostic Findings Abdomen/Pelvis CT 11/13/24 09:[address] WITH IV CONTRAST CT DOSE: 1249.02 mGy.cm HISTORY: Acute generalized abdominal pain abd pain, frequent diarrhea, blood in stool TECHNIQUE: Multiaxial CT images of the abdomen and pelvis were performed following the IV administration of 93 cc of Optiray, A dose lowering technique was utilized adhering to the principles of ALARA. COMPARISON STUDY: None. FINDINGS: Mild cardiomegaly. Clear lung bases. There is no pneumatosis or pneumoperitoneum. Unremarkable spleen, pancreas and adrenal glands. Cholelithiasis without CT evidence of acute cholecystitis. Patency of the hepatic and portal veins. There are a few scattered hepatic cysts. No solid liver lesions are seen. Unremarkable kidneys. There is no hydronephrosis. 11 mm exophytic cyst of the anterior interpolar right kidney. Decompressed urinary bladder with mild wall thickening. Hysterectomy. Atherosclerosis of the aorta without aneurysm. There is no lymphadenopathy. Tiny hiatal hernia. There is no bowel obstruction. There is wall thickening noted throughout the transverse and descending colon with mild adjacent pericolonic stranding. No CT evidence of acute appendicitis. Tiny fat filled umbilical hernia. No acute fracture is seen. IMPRESSION: 1. Findings compatible with a mild nonspecific likely infectious or inflammatory colitis. 2. No bowel obstruction or pneumoperitoneum. 3. Cholelithiasis. ACT 112: Negative or not required by law. The above report was generated using voice recognition software. It may contain grammatical, syntax or spelling errors. Electronically signed by: Walt Robles M.D. 11/13/2024 11:50 AM Supervising Physician Co-Signing Physician Notes Attending Attestation & Admit Note: Pt seen/examined, chart reviewed, admit care plan d/w MARK Alicia. I agree with the umana components of her admission documentation. 64yo female with HTN, Hyperlipidemia, Obesity on Mounjaro, and remote TIA who developed sudden, acute diffuse abdominal pain around 2AM today. She had several episodes of diarrhea followed by small amounts of bright red blood thereafter. She has had mucous per rectum as well. CT abd/pelvis with colitis of the transverse & descending colon. Stool BioFire and C diff testing -- all negative. PMH/PSH/allergies/meds/sochx/famhx - reviewed VSS, afebrile gen - looks very tired & ill but nontoxic, obese, NAD mouth - MMM neck - no JVD heart - RRR, s1 s2, no murmur lungs - CTA b/l abd - soft, NT, ND, BS+, no peritoneal signs ext - pulses 2+ b/l feet, well perfused; no edema labs reviewed CT a/p reviewed A/P: Colitis - suspect 2nd to ischemia. Multiple ischemic colitis risk factors including HTN, hyperlipidemia, age, and obesity. Further, there is notable atherosclerosis of the aorta on imaging. No prior h/o IBD. No diverticulitis seen. Infectious w/u neg. NPO, IVF, IV pain meds, IV abx to prevent bacterial translocation, GI consult tomorrow for their opinion. Labs in am. Evert Rodriguez MD PG Care Time/CCT Total # of Minutes Spent Total Time Spent with Patient: Total time spent is greater than 50% in coordination of care (as documented) at patient's floor/unit and/or counseling patient: Coding Level of Care Code 91637 INT INP/OBS CARE 3/75MIN Diagnoses Colitis K52.9 Hypertension I10 Hyperlipidemia E78.5
[2024-11-13] MEDS ORDERED: ACETAMINOPHEN 325 MG TAB PO PRN (14:03)
[2024-11-13] MEDS: SODIUM CHLORIDE 0.9% 1,000 ML IV SCH (14:13)
[2024-11-13] MEDS ORDERED: cefTRIAXone SODIUM 2,000 MG/50 ML BAG IV STA (14:59)
[2024-11-13] MEDS: cefTRIAXone SODIUM 2,000 MG/50 ML BAG IV SCH (16:09)
[2024-11-13] MEDS: metroNIDAZOLE 500 MG/100 ML BAG IV SCH (16:57)
[2024-11-13] MEDS: hydrALAZINE HCL 20 MG/ML VIAL IV PRN (17:44)
[2024-11-13] MEDS: MoRPHine SULFATE 2 MG/ML CARP IV PRN (17:44)
[2024-11-13 17:46] LABS: Appearance Urine Clear (Clear); Bilirubin Urine Negative (Negative); Blood Urine Negative (Negative); Color Urine Yellow; Glucose Urine UA Negative (Negative); Ketones Urine 1+ (Negative); Leukocyte Esterase Urine Negative (Negative); Nitrite Urine Negative (Negative); Protein Urine Negative (Negative); Specific Gravity Urine > 1.045 (1.000-1.030); Urobilinogen Urine Negative (Negative)
[2024-11-13] MEDS: MELATONIN 3 MG TAB PO PRN (22:37)
[2024-11-13] MEDS: ONDANSETRON INJ 2 MG/ML 2 ML VIAL IV PRN (22:43)
[2024-11-14 07:17] LABS: Albumin Globulin Ratio 1.5 (0.9-2); Albumin Level 3.4 gm/dl (3.4-5.0); BUN Creatinine Ratio 18.5 (10-20); Bilirubin,Total 0.7 mg/dl (0.2-1.0); Calcium 8.1 mg/dl (8.6-10.3); Creatinine Clr Calc Pharmacy 96.6 ml/min; Globulin 2.2 gm/dl (2.5-4.0); Potassium 3.9 mmol/L (3.5-5.1); Total Protein 5.6 gm/dl (6.0-8.3)
--- NOTE | 2024-11-14 07:50 | Hospitalist Progress Note ---
Date of Service November 14, 2024 Assessment & Plan (1) Colitis: (2) Hypertension: (3) Hyperlipidemia: Plan Ms. Palacios is a 64 y/o female with PMHx of HTN, HLD, Obesity on Mounjaro, and TIA (approx. 15 years ago) who developed acute onset of diffuse abdominal pain and diarrhea around 2 AM this AM. Question possible ischemic colitis #Diffuse Abdominal Pain/Diarrhea - Suspected Ischemic Colitis on admission w/ rapid onset abdominal pain ~2am w/ multiple frequent episodes of diarrhea w/ mucous stool once stopped. Risk factors w/ constipation w/ mounjaro. CTAP w/ mild nonspecific infectious or inflammatory colitis Lactic wnl 0.9 and afebrile but did have WBC 13k on admission. GI consulted and placed on abx w/ IV Ceftriaxone/Flagyl IV and made NPO/IVF ordered. WBC improved on repeat however per GI no fever/lactic WNL and ok to discontinue abx Cdiff, stool biofire negative Antiemetics, pain control Clear liquid diet ordered Will need OP colo in 4-6 wks as overdue (brother w/ hx colon ca) Monitor w/ advancement of diet Labs/exam in AM #HTN Amlodipine held on admission to prevent hypoperfusion. BP stable 126/77 and will plan to resume in AM 11/15 #HLD -Continue Atorvastatin 80 mg daily #Obesity, on Mounjaro: Has been on Mounjaro for several months - recent increase to 15 mg dosing on 10/31 with last dose 11/06. Has had intermittent nausea but no vomiting on medication -Hold Mounjaro, f/u discussion w/ PCP but would continue to hold at [place] DVT Prophylaxis: SCDS Dispo: continued inpatient stay, diet advanced/abx discontinued. discharge pending progress w/ advancement in diet. will need outpt colonoscopy in 4-6 wks at [facility] (prior seen by [facility] group w/ Dr Burton and is overdue) Admission and Anticipated Discharge Date Admission Date: November 13, 2024 Supervising Physician Co-Signing Physician Notes The patient was not seen by me. The chart was reviewed. Case discussed with MARK Tilley. Agree with assessment and plan Subjective Eval this morning, feeling MUCH better than admission. On day 2 of symptoms. Did have some blood in stool this morning, liquid but frequency of BM MUCH improved and was going ~q30 minutes. GI saw this morning and discussed stopping abx but to alert if any fever/worsening. Will trial clears. Prior c-scope by [facility], Dr Burton in the past, will be due. No CP/SOB at this time. Questions/concerns addressed at this time. Physical Exam 2 Physical Exam: General: 64yo female sitting up in bed, NAD HEENT: head atraumatic, normocephalic, mm slightly dry/improved Resp: even/unlabored, no wheezing/rales, 95% on RA CV: regular, rates 90s, no significant m/r/g, no pitting edema GI: +BS, soft/nontender : no capps MSK/Neuro: nonfocal, answering questions appropriately, not confused Psych: AOx3, cooperative with exam Results & Data Results & Data Vital Signs (Past 12 Hours) Vital Signs Temp Pulse Pulse Pulse Resp BP BP 11/14/24 07:31 36.8 C 99 H 16 126/77 11/14/24 04:27 37.4 C 110 H 18 150/81 H 11/13/24 23:40 37.0 C 120 H 18 141/86 H 11/13/24 22:01 112 H 11/13/24 19:51 36.9 C 108 H 18 155/82 H Pulse Ox O2 Del Method 11/14/24 07:31 95 Room Air 11/14/24 04:27 93 Room Air 11/13/24 23:40 96 Room Air 11/13/24 22:01 11/13/24 19:51 94 Room Air Laboratory Results 11/14/24 08:58 11/14/24 06:15 Lactic 0.9 Mag 1.8 LFTs wnl Stool biofire negative Cdiff negative Diagnostic Findings Abdomen/Pelvis CT 11/13/24 09:[address] WITH IV CONTRAST CT DOSE: 1249.02 mGy.cm HISTORY: Acute generalized abdominal pain abd pain, frequent diarrhea, blood in stool TECHNIQUE: Multiaxial CT images of the abdomen and pelvis were performed following the IV administration of 93 cc of Optiray, A dose lowering technique was utilized adhering to the principles of ALARA. COMPARISON STUDY: None. FINDINGS: Mild cardiomegaly. Clear lung bases. There is no pneumatosis or pneumoperitoneum. Unremarkable spleen, pancreas and adrenal glands. Cholelithiasis without CT evidence of acute cholecystitis. Patency of the hepatic and portal veins. There are a few scattered hepatic cysts. No solid liver lesions are seen. Unremarkable kidneys. There is no hydronephrosis. 11 mm exophytic cyst of the anterior interpolar right kidney. Decompressed urinary bladder with mild wall thickening. Hysterectomy. Atherosclerosis of the aorta without aneurysm. There is no lymphadenopathy. Tiny hiatal hernia. There is no bowel obstruction. There is wall thickening noted throughout the transverse and descending colon with mild adjacent pericolonic stranding. No CT evidence of acute appendicitis. Tiny fat filled umbilical hernia. No acute fracture is seen. IMPRESSION: 1. Findings compatible with a mild nonspecific likely infectious or inflammatory colitis. 2. No bowel obstruction or pneumoperitoneum. 3. Cholelithiasis. ACT 112: Negative or not required by law. The above report was generated using voice recognition software. It may contain grammatical, syntax or spelling errors. Electronically signed by: Walt Robles M.D. 11/13/2024 11:50 AM PG Care Time/CCT Total # of Minutes Spent Total Time Spent with Patient: Total time spent is greater than 50% in coordination of care (as documented) at patient's floor/unit and/or counseling patient: Coding Level of Care Code 67774 SUB INP/OBS CARE 3/50MIN Diagnoses Colitis K52.9 Hypertension I10 Hyperlipidemia E78.5
[2024-11-14 09:10] LABS: Basophils # (auto) 0.05 K/uL (0.00-0.20); Basophils % (auto) 0.4 %; Eosinophils # (auto) 0.04 K/uL (0.00-0.50); Eosinophils % (auto) 0.3 %; Hematocrit (blood only) 39.8 % (37.0-47.0); Hemoglobin 13.2 g/dl (12.0-16.0); Immature Granulocytes # (auto) 0.03 K/uL (0.01-0.20); Immature Granulocytes % (auto) 0.3 %; Lymphocytes # (auto) 2.72 K/uL (1.20-3.40); Lymphocytes % (auto) 23.1 %; Mean Corpuscular Hemoglobin 28.1 pg (25.0-34.0); Mean Corpuscular Hgb Conc 33.2 g/dL (32.0-36.0); Mean Corpuscular Volume 84.9 fL (80.0-100.0); Monocytes # (auto) 0.93 K/uL (0.11-0.59); Monocytes % (auto) 7.9 %; Neutrophils # (auto) 7.99 K/uL (1.40-6.50); Platelet Count 252 K/uL (130-400); RDW Coefficient of Variation 14.2 % (11.5-14.5); RDW Standard Deviation 43.8 fL (36.4-46.3); Red Blood Count 4.69 M/uL (4.20-5.40); White Blood Count 11.76 K/ul (4.8-10.8)
--- NOTE | 2024-11-14 09:20 | Gastrointestinal Consultation ---
Date of Consultation November 14, 2024 Assessment & Plan (1) Bloody diarrhea: 64 year old female with history of TIA, HTN, HLD, obesity on Mounjaro and others below who is admitted w/ abdominal pain, loose stools followed by development of bloody diarrhea 1. Abd pain, bloody diarrhea - CT w/ mild nonspecific colitis - C.diff gene negative - Stool PCR negative - Lactate normal - Continue supportive measures - Start liquids diet - Discussed role of ABX in ischemic colitis - Benefit of ABX therapy unclear - As she is afebrile may D/C 2. Colon cancer screening - Family history of colon CA in brother - OP colonoscopy in 4-6 weeks I spent a total of 60 minutes on the date of service in review of patient's record, and previously obtained information in person and appropriate medical visit, discussion and education of plan, with patient and/or caregiver, placing orders for tests/referral/procedures as medically necessary and documentation of pertinent clinical information in patient's medical records for their visit today. Supervising Physician Co-Signing Physician Notes I saw and examined this patient with our nurse practitioner and agree with her assessment and plan. Sudden onset of abdominal pain followed by diarrhea and hematochezia supports the diagnosis of ischemic colitis. CT scan findings are consistent with this. Symptoms should respond to conservative medical management. Ultimately recommend colonoscopy in 4 to 6 weeks. No indication for intervention at this point unless symptoms persist and bleeding continues. History of Present Illness Reason for Consultation: Poss Ischemic Colitis - Lactate normal Requesting Physician: Ajay Vu MD Attending Physician: Ajay Vu MD History of Present Illness 64 year old female with history of TIA, HTN, HLD, obesity on Mounjaro and others below who is admitted w/ abdominal pain - GI was asked to evaluate for possible ischemic colitis. Pt was seen and evaluated, chart reviewed. She suggests she woke up around 11/14/23 0200 w/ severe abd pain associated w/ urgent need to move her bowels. At onset stools were loose, watery. Suggests after passing her stools every 10/15 minutes she noted her stools were bloody. She sought ED care. Since ED arrival, she notes her abdominal pain is better controlled and her stools are less frequent. Notes her last BM was last evening - small amounts of BRB and mucous. HGB 16 --> 13.2 Lactacte 0.9 Stool PCR negative C.diff gene negative No AC Is on daily ASA Family history of colon CA in brother Last colonoscopy was at OSH about 11 years ago, was to be on 5 year recall CTAP 2024: Findings compatible with a mild nonspecific likely infectious or inflammatory colitis.. No bowel obstruction or pneumoperitoneum. Cholelithiasis. Allergies Allergy/AdvReac Type Severity Reaction Status Date / Time No Known Allergies Allergy Unknown NONE Verified 02/16/19 07:14 Home Medications Medication Instructions Recorded Confirmed Type amlodipine 5 mg tablet 5 mg PO DAILY 01/12/19 11/13/24 History aspirin 81 mg tablet,delayed 81 mg PO DAILY 01/12/19 11/13/24 History release atorvastatin 40 mg tablet 80 mg PO DAILY 01/12/19 11/13/24 History tirzepatide 15 mg/0.5 mL 15 mg subcut WK 11/13/24 11/13/24 History subcutaneous pen injector (Mounjaro) Patient History Medical History (Updated 11/13/24 @ 16:52 by Chandler Gill PA-C) Morbid obesity Hypothyroidism Hearing deficit BL HENDERSON Hypertension Hyperlipidemia Surgical History History of total abdominal hysterectomy and bilateral salpingo-oophorectomy History of tubal ligation History of tonsillectomy History of colonoscopy Family History Brother Family hx of colon cancer Social History Smoking Status: Never smoker Second Hand Exposure: No; Do You Dip or Chew Tobacco: No; Hx Alcohol Use: No Hx Substance Use: No Preferred Language: Kyrgyz Communication Ability: Effective Carriage Feeder Required: No Beliefs That Will Affect Care: None Current Living Situation: Spouse Other Information That Helps Us Care for You: No Feels Safe at Home: Yes Safety Concerns: Feels Safe At This Time Assistive Devices: None Review of Systems Review of Systems: All other findings negative except as noted in HPI. Physical Exam Constitutional: WD/WN, vitals as above Respiratory: normal respiratory effort, lungs clear to auscultation Cardiovascular: RRR, no murmur, no edema Gastrointestinal (Abdomen): normal bowel sounds, soft, nontender, no hepatosplenomegaly Skin: no rashes, warm and dry Results & Data Vital Signs (Past 12 Hours) Vital Signs Temp Pulse Pulse Pulse Resp BP BP 11/14/24 07:31 98.2 F 99 H 16 126/77 11/14/24 04:27 99.3 F 110 H 18 150/81 H 11/13/24 23:40 98.6 F 120 H 18 141/86 H 11/13/24 22:01 112 H Pulse Ox O2 Del Method 11/14/24 07:31 95 Room Air 11/14/24 04:27 93 Room Air 11/13/24 23:40 96 Room Air 11/13/24 22:01 Laboratory Results 11/14/24 11/14/24 11/13/24 Range/Units 08:58 06:15 17:20 WBC 11.76 H (4.8-10.8) K/ul RBC 4.69 (4.20-5.40) M/uL Hgb 13.2 D (12.0-16.0) g/dl Hct 39.8 (37.0-47.0) % MCV 84.9 (80.0-100.0) fL MCH 28.1 (25.0-34.0) pg MCHC 33.2 (32.0-36.0) g/dL RDW Std Deviation 43.8 (36.4-46.3) fL RDW Coeff of Delon 14.2 (11.5-14.5) % Plt Count 252 (130-400) K/uL MPV 10.0 (9.4-12.4) fL Immature Gran % (Auto) 0.3 % Neut % (Auto) 68.0 % Lymph % (Auto) 23.1 % Mccormick % (Auto) 7.9 % Eos % (Auto) 0.3 % Baso % (Auto) 0.4 % Neut # (Auto) 7.99 H (1.40-6.50) K/uL Lymph # (Auto) 2.72 (1.20-3.40) K/uL Mccormick # (Auto) 0.93 H (0.11-0.59) K/uL Eos # (Auto) 0.04 (0.00-0.50) K/uL Baso # (Auto) 0.05 (0.00-0.20) K/uL Immature Gran # (Auto) 0.03 (0.01-0.20) K/uL PT INR APTT PTT Ratio Sodium 138 (136-145) mmol/L Potassium 3.9 (3.5-5.1) mmol/L Chloride 109 H (98-107) mmol/L Carbon Dioxide 24 (21-32) mmol/L Anion Gap 5 (3-11) BUN 12 (6-23) mg/dl Creatinine 0.65 (0.6-1.2) mg/dl Est Cr Clr Drug Dosing 96.6 ml/min eGFR 99.49 BUN/Creatinine Ratio 18.5 (10-20) Glucose 91 (70-99(Fasting)) mg/dl Lactate (0.4-2.0) mmol/L Calcium 8.1 L (8.6-10.3) mg/dl Magnesium Pending (1.7-2.4) mg/dl Total Bilirubin 0.7 (0.2-1.0) mg/dl AST 24 (13-39) U/L ALT 26 (7-52) U/L Alkaline Phosphatase 56 (34-104) U/L Total Protein 5.6 L D (6.0-8.3) gm/dl Albumin 3.4 (3.4-5.0) gm/dl Globulin 2.2 L (2.5-4.0) gm/dl Albumin/Globulin Ratio 1.5 (0.9-2) Lipase (11-82) U/L Urine Color Yellow Urine Appearance Clear (Clear) Urine pH 5.0 (4.5-7.5) Ur Specific Oriska > 1.045 H (1.000-1.030) Urine Protein Negative (Negative) Urine Glucose (UA) Negative (Negative) Urine Ketones 1+ H (Negative) Urine Blood Negative (Negative) Urine Nitrite Negative (Negative) Urine Bilirubin Negative (Negative) Urine Urobilinogen Negative (Negative) Ur Leukocyte Esterase Negative (Negative) Stl C. cayetanensis PCR (NotDetected) Stool Rotavirus A PCR (NotDetected) Stl Adenov F 40/41 PCR (NotDetected) Stool Astrovirus (PCR) (NotDetected) Stool Campylobacter PCR (NotDetected) Stl C. diff Tox B Gene (Neg) Stool Cryptosporidium PCR (NotDetected) Stl E.coli Shiga Tox PCR (NotDetected) Stl Enterotoxigenic E PCR (NotDetected) Stool EPEC (PCR) (NotDetected) Stool EAEC (PCR) (NotDetected) Stl E. histolytica PCR (NotDetected) Stool Giardia Lamblia PCR (NotDetected) Stool Salmonella PCR (NotDetected) Stool Sapovirus (PCR) (NotDetected) Stl P. shigelloides PCR (NotDetected) Stl Shigella/EIEC PCR (NotDetected) St Y.enterocolitica PCR (NotDetected) Stool Vibrio (PCR) (NotDetected) Stl Vibrio cholerae PCR (NotDetected) Stl Norovirus GI/GII PCR (NotDetected) 11/13/24 11/13/24 11/13/24 Range/Units 11:29 10:32 09:48 WBC 13.06 H (4.8-10.8) K/ul RBC 5.58 H (4.20-5.40) M/uL Hgb 16.1 H (12.0-16.0) g/dl Hct 46.5 (37.0-47.0) % MCV 83.3 (80.0-100.0) fL MCH 28.9 (25.0-34.0) pg MCHC 34.6 (32.0-36.0) g/dL RDW Std Deviation 41.3 (36.4-46.3) fL RDW Coeff of Delon 13.6 (11.5-14.5) % Plt Count 329 (130-400) K/uL MPV 10.6 (9.4-12.4) fL Immature Gran % (Auto) 0.2 % Neut % (Auto) 90.3 % Lymph % (Auto) 6.8 % Mccormick % (Auto) 2.5 % Eos % (Auto) 0.0 % Baso % (Auto) 0.2 % Neut # (Auto) 11.80 H (1.40-6.50) K/uL Lymph # (Auto) 0.89 L (1.20-3.40) K/uL Mccormick # (Auto) 0.32 (0.11-0.59) K/uL Eos # (Auto) 0.00 (0.00-0.50) K/uL Baso # (Auto) 0.02 (0.00-0.20) K/uL Immature Gran # (Auto) 0.03 (0.01-0.20) K/uL PT 10.4 Cancelled INR 1.0 Cancelled APTT 26 Cancelled PTT Ratio 1.0 Cancelled Sodium 138 (136-145) mmol/L Potassium 4.0 (3.5-5.1) mmol/L Chloride 105 (98-107) mmol/L Carbon Dioxide 24 (21-32) mmol/L Anion Gap 9 (3-11) BUN 18 (6-23) mg/dl Creatinine 0.75 (0.6-1.2) mg/dl Est Cr Clr Drug Dosing 85.9 ml/min eGFR 89.96 BUN/Creatinine Ratio 24.0 H (10-20) Glucose 121 H (70-99(Fasting)) mg/dl Lactate 0.9 (0.4-2.0) mmol/L Calcium 9.9 (8.6-10.3) mg/dl Magnesium 2.0 (1.7-2.4) mg/dl Total Bilirubin 0.8 (0.2-1.0) mg/dl AST 30 (13-39) U/L ALT 33 (7-52) U/L Alkaline Phosphatase 73 (34-104) U/L Total Protein 8.2 (6.0-8.3) gm/dl Albumin 4.8 (3.4-5.0) gm/dl Globulin 3.4 (2.5-4.0) gm/dl Albumin/Globulin Ratio 1.4 (0.9-2) Lipase 38 (11-82) U/L Urine Color Urine Appearance (Clear) Urine pH (4.5-7.5) Ur Specific Oriska (1.000-1.030) Urine Protein (Negative) Urine Glucose (UA) (Negative) Urine Ketones (Negative) Urine Blood (Negative) Urine Nitrite (Negative) Urine Bilirubin (Negative) Urine Urobilinogen (Negative) Ur Leukocyte Esterase (Negative) Stl C. cayetanensis PCR Not Detected (NotDetected) Stool Rotavirus A PCR Not Detected (NotDetected) Stl Adenov F 40/41 PCR Not Detected (NotDetected) Stool Astrovirus (PCR) Not Detected (NotDetected) Stool Campylobacter PCR Not Detected (NotDetected) Stl C. diff Tox B Gene Negative Cdiff Gene (Neg) Stool Cryptosporidium PCR Not Detected (NotDetected) Stl E.coli Shiga Tox PCR Not Detected (NotDetected) Stl Enterotoxigenic E PCR Not Detected (NotDetected) Stool EPEC (PCR) Not Detected (NotDetected) Stool EAEC (PCR) Not Detected (NotDetected) Stl E. histolytica PCR Not Detected (NotDetected) Stool Giardia Lamblia PCR Not Detected (NotDetected) Stool Salmonella PCR Not Detected (NotDetected) Stool Sapovirus (PCR) Not Detected (NotDetected) Stl P. shigelloides PCR Not Detected (NotDetected) Stl Shigella/EIEC PCR Not Detected (NotDetected) St Y.enterocolitica PCR Not Detected (NotDetected) Stool Vibrio (PCR) Not Detected (NotDetected) Stl Vibrio cholerae PCR Not Detected (NotDetected) Stl Norovirus GI/GII PCR Not Detected (NotDetected) PG Care Time/CCT Total # of Minutes Spent Total Time Spent with Patient: Total time spent is greater than 50% in coordination of care (as documented) at patient's floor/unit and/or counseling patient: Coding Level of Care Code 36216 IN/OBS CONSULT LVL 4,60M Diagnoses Bloody diarrhea R19.7
[2024-11-14] MEDS: ASPIRIN 81 MG ECTAB PO SCH (10:00)
[2024-11-14] MEDS: ATORVASTATIN 40 MG TAB PO SCH ×2 (10:55→20:49)
[2024-11-15 07:01] LABS: Basophils # (auto) 0.05 K/uL (0.00-0.20); Basophils % (auto) 0.5 %; Eosinophils # (auto) 0.12 K/uL (0.00-0.50); Eosinophils % (auto) 1.2 %; Hematocrit (blood only) 38.2 % (37.0-47.0); Hemoglobin 12.8 g/dl (12.0-16.0); Immature Granulocytes # (auto) 0.03 K/uL (0.01-0.20); Immature Granulocytes % (auto) 0.3 %; Lymphocytes # (auto) 2.69 K/uL (1.20-3.40); Mean Corpuscular Hemoglobin 28.3 pg (25.0-34.0); Mean Corpuscular Hgb Conc 33.5 g/dL (32.0-36.0); Mean Corpuscular Volume 84.5 fL (80.0-100.0); Mean Platelet Volume 10.3 fL (9.4-12.4); Monocytes # (auto) 0.72 K/uL (0.11-0.59); Monocytes % (auto) 7.2 %; Neutrophils # (auto) 6.34 K/uL (1.40-6.50); Neutrophils % (auto) 63.8 %; Platelet Count 224 K/uL (130-400); RDW Coefficient of Variation 13.6 % (11.5-14.5); RDW Standard Deviation 42.2 fL (36.4-46.3); Red Blood Count 4.52 M/uL (4.20-5.40); White Blood Count 9.95 K/ul (4.8-10.8)
[2024-11-15 07:21] LABS: Albumin Globulin Ratio 1.4 (0.9-2); Albumin Level 3.2 gm/dl (3.4-5.0); BUN Creatinine Ratio 9.2 (10-20); Bilirubin,Total 0.9 mg/dl (0.2-1.0); Calcium 8.4 mg/dl (8.6-10.3); Creatinine Clr Calc Pharmacy 94.5 ml/min; Globulin 2.3 gm/dl (2.5-4.0); Magnesium 1.9 mg/dl (1.7-2.4); Potassium 3.7 mmol/L (3.5-5.1); Total Protein 5.5 gm/dl (6.0-8.3)
--- NOTE | 2024-11-15 08:16 | Hospitalist Progress Note ---
Date of Service November 15, 2024 Assessment & Plan (1) Colitis: (2) Hypertension: (3) Hyperlipidemia: Plan Ms. Palacios is a 64 y/o female with PMHx of HTN, HLD, Obesity on Mounjaro, and TIA (approx. 15 years ago) who developed acute onset of diffuse abdominal pain and diarrhea around 2 AM this AM. Question possible ischemic colitis #Diffuse Abdominal Pain/Diarrhea - Suspected Ischemic Colitis on admission w/ rapid onset abdominal pain ~2am w/ multiple frequent episodes of diarrhea w/ mucous stool once stopped. Risk factors w/ constipation w/ mounjaro. CTAP w/ mild nonspecific infectious or inflammatory colitis GI consulted and placed on abx w/ IV Ceftriaxone/Flagyl IV and made NPO/IVF ordered. Cdiff, stool biofire negative Lactic wnl 0.9 and afebrile but did have WBC 13k on admission. WBC improved on repeat however per GI no fever/lactic WNL and ok to discontinue abx --> WBC normalized OFF abx, has been afebrile and lactic 0.8 Antiemetics, pain control Diet: clear liquid diet ordered --> advanced to full liquid, possibly low fiber this evening if tolerates Hopeful dc AM 11/16, plan for outpatient colonoscopy 4-6wks (brother w/ hx colon ca, overdue, followed Dr siegel in the past) #HTN Amlodipine held on admission to prevent hypoperfusion. BP stable and resumed amlodipine 5mg for 11/16, monitor for any issues #HLD -Continue Atorvastatin 80 mg daily #Obesity, on Mounjaro: Has been on Mounjaro for several months - recent increase to 15 mg dosing on 10/31 with last dose 11/06. Has had intermittent nausea but no vomiting on medication Hold Mounjaro, f/u discussion w/ PCP but would continue to hold at dc DVT Prophylaxis: SCDS, ambulation Dispo: continued inpatient stay, diet has been advanced and remains off abx without fever/leukocytosis or elevated lactic. If tolerates adv to low fiber can plan for dc in AM with outpatient GI followup for c-scope Admission and Anticipated Discharge Date Admission Date: November 13, 2024 Supervising Physician Co-Signing Physician Notes The patient was not seen by me. The chart was reviewed. Case discussed with Deborah Santiago, PA. Agree with assessment and plan Subjective Eval this morning, tolerating clear liquids, pain much improved. Only lower abdominal cramping at times, nothing significant per patient. WBC normalized off abx. Last BM yesterday. Diet to advance for lunch, possible low fiber this evening vs tomorrow w/ hopes for dc tomorrow. Outpatient c-scope Questions/concerns addressed at this time. Physical Exam 2 Physical Exam: General: 64yo female sitting up in chair, NAD HEENT: head atraumatic, normocephalic, mm slightly dry/improved Resp: even/unlabored, no wheezing/rales, 95% on RA CV: regular, rates 90s, no significant m/r/g, no pitting edema GI: +BS, soft, mild lower abdominal cramping/tenderness reported but no overt tenderness, no guarding/rigidity : no capps MSK/Neuro: nonfocal, answering questions appropriately, not confused Psych: AOx3, cooperative with exam Results & Data Results & Data Vital Signs (Past 12 Hours) Vital Signs Temp Pulse Pulse Resp BP Pulse Ox O2 Del Method 11/15/24 07:34 36.8 C 91 H 127/77 91 Room Air 11/15/24 05:34 96 H 11/15/24 02:44 36.7 C 96 H 18 114/70 91 Room Air 11/14/24 23:33 36.8 C 99 H 16 122/74 95 Room Air 11/14/24 22:02 97 H Laboratory Results 11/15/24 06:40 11/15/24 06:40 Lactic 0.8 Mag 1.9 PG Care Time/CCT Total # of Minutes Spent Total Time Spent with Patient: Total time spent is greater than 50% in coordination of care (as documented) at patient's floor/unit and/or counseling patient: Coding Level of Care Code 13954 SUB INP/OBS CARE 2/35MIN Diagnoses Colitis K52.9 Hypertension I10 Hyperlipidemia E78.5
--- NOTE | 2024-11-15 09:10 | Gastroenterology Progress Note ---
Date of Service November 15, 2024 Assessment & Plan (1) Bloody diarrhea: Plan: 64 year old female with history of TIA, HTN, HLD, obesity on Mounjaro and others below who is admitted w/ abdominal pain, loose stools followed by development of bloody diarrhea - suspect ischemic colitis 1. Abd pain, bloody diarrhea, suspected ischemic colitis - CT w/ mild nonspecific colitis - C.diff gene negative - Stool PCR negative - Lactate normal - Continue supportive measures - Start liquids diet --> advance to low reside as tolerated - Discussed role of ABX in ischemic colitis - Benefit of ABX therapy unclear - As she is afebrile may D/C 2. Colon cancer screening - Family history of colon CA in brother - OP colonoscopy in 4-6 weeks I spent a total of 40 minutes on the date of service in review of patient's record, and previously obtained information in person and appropriate medical visit, discussion and education of plan, with patient and/or caregiver, placing orders for tests/referral/procedures as medically necessary and documentation of pertinent clinical information in patient's medical records for their visit today. Admission and Anticipated Discharge Date Admission Date: November 13, 2024 Supervising Physician Co-Signing Physician Notes I saw and examined this patient with our nurse practitioner and agree with her assessment and plan. Continues to clinically improve. No further hematochezia. Less abdominal pain. Tolerating clear liquid diet. Can consider advancing her diet to a low residue diet later today. Subjective Pt was seen and evaluated, chart reviewed. Feeling much better. Pain is resolved. Mild cramping intermittently. Last BM was yesterday - less blood. Passing gas. Has been ambulating in the room. Review of Systems Review of Systems: All other findings negative except as noted in HPI. Physical Exam Constitutional: WD/WN, vitals as above Respiratory: normal respiratory effort, lungs clear to auscultation Cardiovascular: Rate/Rhythm: regular rate and regular rhythm Gastrointestinal (Abdomen): normal bowel sounds, soft, nontender, no hepatosplenomegaly Skin: no rashes, warm and dry Results & Data Results & Data Vital Signs (Past 12 Hours) Vital Signs Temp Pulse Pulse Resp BP Pulse Ox O2 Del Method 11/15/24 07:34 98.2 F 91 H 127/77 91 Room Air 11/15/24 05:34 96 H 11/15/24 02:44 98.1 F 96 H 18 114/70 91 Room Air 11/14/24 23:33 98.2 F 99 H 16 122/74 95 Room Air 11/14/24 22:02 97 H Laboratory Results 11/15/24 11/15/24 11/14/24 Range/Units 06:43 06:40 08:58 WBC 9.95 11.76 H (4.8-10.8) K/ul RBC 4.52 4.69 (4.20-5.40) M/uL Hgb 12.8 13.2 D (12.0-16.0) g/dl Hct 38.2 39.8 (37.0-47.0) % MCV 84.5 84.9 (80.0-100.0) fL MCH 28.3 28.1 (25.0-34.0) pg MCHC 33.5 33.2 (32.0-36.0) g/dL RDW Std Deviation 42.2 43.8 (36.4-46.3) fL RDW Coeff of Delon 13.6 14.2 (11.5-14.5) % Plt Count 224 252 (130-400) K/uL MPV 10.3 10.0 (9.4-12.4) fL Immature Gran % (Auto) 0.3 0.3 % Neut % (Auto) 63.8 68.0 % Lymph % (Auto) 27.0 23.1 % Alcorn % (Auto) 7.2 7.9 % Eos % (Auto) 1.2 0.3 % Baso % (Auto) 0.5 0.4 % Neut # (Auto) 6.34 7.99 H (1.40-6.50) K/uL Lymph # (Auto) 2.69 2.72 (1.20-3.40) K/uL Alcorn # (Auto) 0.72 H 0.93 H (0.11-0.59) K/uL Eos # (Auto) 0.12 0.04 (0.00-0.50) K/uL Baso # (Auto) 0.05 0.05 (0.00-0.20) K/uL Immature Gran # (Auto) 0.03 0.03 (0.01-0.20) K/uL Sodium 140 (136-145) mmol/L Potassium 3.7 (3.5-5.1) mmol/L Chloride 107 (98-107) mmol/L Carbon Dioxide 30 (21-32) mmol/L Anion Gap 3 (3-11) BUN 6 (6-23) mg/dl Creatinine 0.65 (0.6-1.2) mg/dl Est Cr Clr Drug Dosing 94.5 ml/min eGFR 99.49 BUN/Creatinine Ratio 9.2 L (10-20) Glucose 83 (70-99(Fasting)) mg/dl Lactate 0.8 (0.4-2.0) mmol/L Calcium 8.4 L (8.6-10.3) mg/dl Magnesium 1.9 1.8 (1.7-2.4) mg/dl Total Bilirubin 0.9 (0.2-1.0) mg/dl AST 20 (13-39) U/L ALT 21 (7-52) U/L Alkaline Phosphatase 55 (34-104) U/L Total Protein 5.5 L (6.0-8.3) gm/dl Albumin 3.2 L (3.4-5.0) gm/dl Globulin 2.3 L (2.5-4.0) gm/dl Albumin/Globulin Ratio 1.4 (0.9-2) PG Care Time/CCT Total # of Minutes Spent Total Time Spent with Patient: Total time spent is greater than 50% in coordination of care (as documented) at patient's floor/unit and/or counseling patient: Coding Level of Care Code 09999 SUB INP/OBS CARE 2/35MIN Diagnoses Bloody diarrhea R19.7
[2024-11-15] MEDS: amLODIPine BESYLATE 5 MG TAB PO SCH (12:52)
[2024-11-16 01:01] LABS: Basophils # (auto) 0.06 K/uL (0.00-0.20); Basophils % (auto) 0.4 %; Eosinophils # (auto) 0.15 K/uL (0.00-0.50); Eosinophils % (auto) 1.1 %; Hematocrit (blood only) 39.8 % (37.0-47.0); Hemoglobin 13.4 g/dl (12.0-16.0); Immature Granulocytes # (auto) 0.05 K/uL (0.01-0.20); Immature Granulocytes % (auto) 0.4 %; Lymphocytes # (auto) 2.45 K/uL (1.20-3.40); Lymphocytes % (auto) 18.2 %; Mean Corpuscular Hemoglobin 28.3 pg (25.0-34.0); Mean Corpuscular Hgb Conc 33.7 g/dL (32.0-36.0); Mean Platelet Volume 10.5 fL (9.4-12.4); Monocytes # (auto) 0.94 K/uL (0.11-0.59); Neutrophils % (auto) 72.9 %; Platelet Count 258 K/uL (130-400); RDW Coefficient of Variation 13.7 % (11.5-14.5); RDW Standard Deviation 41.9 fL (36.4-46.3); Red Blood Count 4.74 M/uL (4.20-5.40); White Blood Count 13.45 K/ul (4.8-10.8)
[2024-11-16 07:41] LABS: Albumin Globulin Ratio 1.3 (0.9-2); Albumin Level 3.3 gm/dl (3.4-5.0); BUN Creatinine Ratio 12.7 (10-20); Bilirubin,Total 0.8 mg/dl (0.2-1.0); Calcium 8.3 mg/dl (8.6-10.3); Creatinine Clr Calc Pharmacy 86.5 ml/min; Globulin 2.5 gm/dl (2.5-4.0); Potassium 3.6 mmol/L (3.5-5.1); Total Protein 5.8 gm/dl (6.0-8.3)
--- NOTE | 2024-11-16 07:51 | Hospitalist Progress Note ---
Date of Service November 16, 2024 Assessment & Plan (1) Colitis: (2) Hypertension: (3) Hyperlipidemia: Plan Ms. Palacios is a 64 y/o female with PMHx of HTN, HLD, Obesity on Mounjaro, and TIA (approx. 15 years ago) who developed acute onset of diffuse abdominal pain and diarrhea around 2 AM this AM. Question possible ischemic colitis #Diffuse Abdominal Pain/Diarrhea - Suspected Ischemic Colitis on admission w/ rapid onset abdominal pain ~2am w/ multiple frequent episodes of diarrhea w/ mucous stool once stopped. Risk factors w/ constipation w/ mounjaro. CTAP w/ mild nonspecific infectious vs inflammatory colitis GI consulted IVF/Ceftriaxone/Flagyl on admission Cdiff, biofire stool NEGATIVE. Lactic 0.9, 0.8x2 on repeat GI rec to dc abx, were stopped on 11/15 and WBC normalized/afebrile Diet advanced to full liquid --> low fiber evening 11/15 but had worse pain/diarrhea and backed to full liquid. WBC elevation noted to 13k w/ temp 37.6C but patient reports feeling well/cramping today but requesting to go home Discussed w/ GI ELIAZAR, Bentyl 10mg TID for spasm type discomfort, can advance to low fiber for lunch and if tolerated dc w/ low fiber diet and OP C-scope as prior rec but if any worsening would recommend staying. If stay/worsening leukocytosis or fever, recs for repeat imaging (or return if tolerates diet and goes home and develops symptoms) +BM after lunch but was nonpainful and will monitor with dinner to ensure no issues and plan for dc if staying stable. Remains afebrile #HTN CCB initially held to prevent hypoperfusion and Bps stable and amlodipine has been resumed, BP stable 150/81 #HLD resumed/continue Atorvastatin 80 mg daily now that no longer NPO #Obesity, on Mounjaro: Has been on Mounjaro for several months w/ recent increase to 15 mg dosing on 10/31 with last dose 11/06. Has had intermittent nausea but no vomiting on medication Hold Mounjaro, f/u discussion w/ PCP but would continue to hold at dc DVT Prophylaxis: SCDS, ambulation Dispo: continued inpatient stay, diet has been advanced and potential dc after dinner if continued tolerance If tolerates adv to low fiber can plan for dc Return sx discussed if occurs. CM navigator sending ref to [facility] for outpt scope at dc as recommended given wanting to continue to follow with their group (prior was seen by Dr Burton) Admission and Anticipated Discharge Date Admission Date: November 13, 2024 Subjective Eval around 1130, had increased pain/diarrhea last evening. Reports seeing GI PA, suspects some spasm but reports thinks reasonable to go home maybe w/ medication and low fiber diet. Not liking the liquids and wanting some banana/applesauce/toast if at all possible. She believes she would do better at home to recover but not sure what to do about pain if recurs. Reports GI thinks ok to go home if spasm medication helpful. Discussed will touch base w/ GI regarding plan/recs but if discharge planned should return if any fever/worse pain or bloody diarrhea for repeat imaging. --> Per GI, can order Bentyl 10mg TID, ok w/ adv diet and if tolerates can dc w/ return sx but otherwise would rec to stay. Patient agreeable to proposed plan, kitchen called for tray for lunch. Physical Exam 2 Physical Exam: General: 64yo female sitting up in chair, NAD, wanting to eat HEENT: head atraumatic, normocephalic, mm slightly dry/improved Resp: even/unlabored, no wheezing/rales, 95% on RA CV: regular, rates 90s, no significant m/r/g, no pitting edema GI: +BS, soft, generalized lower cramping but no overt tenderness/guarding or rigidity : no capps MSK/Neuro: nonfocal, answering questions appropriately, not confused Psych: AOx3, cooperative with exam Results & Data Results & Data Vital Signs (Past 12 Hours) Vital Signs Temp Pulse Pulse Resp BP Pulse Ox O2 Del Method 11/16/24 07:38 37.6 C H 102 H 104 H 20 124/70 96 Room Air 11/15/24 23:35 36.7 C 114 H 20 173/79 H 98 Room Air Laboratory Results 11/16/24 00:18 11/16/24 06:32 Lactic 0.8 LFTs wnl PG Care Time/CCT Total # of Minutes Spent Total Time Spent with Patient: Total time spent is greater than 50% in coordination of care (as documented) at patient's floor/unit and/or counseling patient: Coding Level of Care Code 38180 SUB INP/OBS CARE MIN Diagnoses Colitis K52.9 Hypertension I10 Hyperlipidemia E78.5
--- NOTE | 2024-11-16 09:48 | Gastroenterology Progress Note ---
Date of Service November 16, 2024 Assessment & Plan (1) Colitis: Plan: 64 year old female with history of TIA, HTN, HLD, obesity on Mounjaro and others below who is admitted w/ abdominal pain, loose stools followed by development of bloody diarrhea - suspect ischemic colitis 1. Abd pain, bloody diarrhea, suspected ischemic colitis - CT w/ mild nonspecific colitis - C.diff gene negative - Stool PCR negative - Lactate normal - Continue supportive measures - Start liquids diet --> advance to low reside as tolerated - Pain returned w/ dietary advancement, return to level of diet tolerated - WBC count noted this AM - Pain improved now, if WBC trending up, febrile or pain return recommend repeat CT 2. Colon cancer screening - Family history of colon CA in brother - OP colonoscopy in 4-6 weeks I spent a total of 40 minutes on the date of service in review of patient's record, and previously obtained information in person and appropriate medical visit, discussion and education of plan, with patient and/or caregiver, placing orders for tests/referral/procedures as medically necessary and documentation of pertinent clinical information in patient's medical records for their visit today. Admission and Anticipated Discharge Date Admission Date: November 13, 2024 Supervising Physician Co-Signing Physician Notes I saw and examined this patient with our nurse practitioner and agree with her assessment and plan. Clinically improved today. Tolerated p.o. well. No significant abdominal pain less frequent bowel movements. There are bright red blood per rectum. Hemoglobin stable. Plan for discharge today will follow-up with Sal[facility] for colonoscopy within the next 1 to 2 months. Subjective Pt was seen and evaluated, chart reviewed. She attempted to advance diet last evening which results in abd discomfort, cramping. She suggests she had large amount of loose stool but less blood than previous BMs. This AM she is trying liquid diet. Cramping seems improved. No BM since last evenings. Review of Systems Review of Systems: All other findings negative except as noted in HPI. Physical Exam Constitutional: WD/WN, vitals as above Respiratory: normal respiratory effort, lungs clear to auscultation Gastrointestinal (Abdomen): normal bowel sounds, soft, nontender, no hepatosplenomegaly Skin: no rashes, warm and dry Results & Data Results & Data Vital Signs (Past 12 Hours) Vital Signs Temp Pulse Pulse Resp BP Pulse Ox O2 Del Method 11/16/24 07:38 99.7 F H 102 H 104 H 20 124/70 96 Room Air 11/15/24 23:35 98.1 F 114 H 20 173/79 H 98 Room Air Laboratory Results 11/16/24 11/16/24 Range/Units 06:32 00:18 WBC 13.45 H (4.8-10.8) K/ul RBC 4.74 (4.20-5.40) M/uL Hgb 13.4 (12.0-16.0) g/dl Hct 39.8 (37.0-47.0) % MCV 84.0 (80.0-100.0) fL MCH 28.3 (25.0-34.0) pg MCHC 33.7 (32.0-36.0) g/dL RDW Std Deviation 41.9 (36.4-46.3) fL RDW Coeff of Delon 13.7 (11.5-14.5) % Plt Count 258 (130-400) K/uL MPV 10.5 (9.4-12.4) fL Immature Gran % (Auto) 0.4 % Neut % (Auto) 72.9 % Lymph % (Auto) 18.2 % [place] % (Auto) 7.0 % Eos % (Auto) 1.1 % Baso % (Auto) 0.4 % Neut # (Auto) 9.80 H (1.40-6.50) K/uL Lymph # (Auto) 2.45 (1.20-3.40) K/uL [place] # (Auto) 0.94 H (0.11-0.59) K/uL Eos # (Auto) 0.15 (0.00-0.50) K/uL Baso # (Auto) 0.06 (0.00-0.20) K/uL Immature Gran # (Auto) 0.05 (0.01-0.20) K/uL Sodium 137 (136-145) mmol/L Potassium 3.6 (3.5-5.1) mmol/L Chloride 103 (98-107) mmol/L Carbon Dioxide 26 (21-32) mmol/L Anion Gap 8 (3-11) BUN 9 (6-23) mg/dl Creatinine 0.71 (0.6-1.2) mg/dl Est Cr Clr Drug Dosing 86.5 ml/min eGFR 96.07 BUN/Creatinine Ratio 12.7 (10-20) Glucose 94 (70-99(Fasting)) mg/dl Lactate 0.8 (0.4-2.0) mmol/L Calcium 8.3 L (8.6-10.3) mg/dl Total Bilirubin 0.8 (0.2-1.0) mg/dl AST 23 (13-39) U/L ALT 21 (7-52) U/L Alkaline Phosphatase 58 (34-104) U/L Total Protein 5.8 L (6.0-8.3) gm/dl Albumin 3.3 L (3.4-5.0) gm/dl Globulin 2.5 (2.5-4.0) gm/dl Albumin/Globulin Ratio 1.3 (0.9-2) PG Care Time/CCT Total # of Minutes Spent Total Time Spent with Patient: Total time spent is greater than 50% in coordination of care (as documented) at patient's floor/unit and/or counseling patient: Coding Level of Care Code 70377 SUB INP/OBS CARE 235MIN Diagnoses Colitis K52.9
[2024-11-16 11:34] VITALS: BP 112/74; PULSE 100; RESP 18; TEMP 98.6; O2SAT 95
[2024-11-16] MEDS: DICYCLOMINE HCL 10 MG CAP PO SCH (13:29)
--- NOTE | 2024-11-16 14:56 | Discharge Summary ---
Discharge Summary Date of Service November 16, 2024 Principal Dx & Hospital Course #1 = Principal Diagnosis (1) Colitis: (2) Hypertension: (3) Hyperlipidemia: Plan Ms. Palacios is a 64 y/o female with PMHx of HTN, HLD, Obesity on Mounjaro, and TIA (approx. 15 years ago) who developed acute onset of diffuse abdominal pain and diarrhea around 2 AM this AM. Question possible ischemic colitis #Diffuse Abdominal Pain/Diarrhea - Suspected Ischemic Colitis on admission w/ rapid onset abdominal pain ~2am w/ multiple frequent episodes of diarrhea w/ mucous stool once stopped. Risk factors w/ constipation w/ mounjaro. CTAP w/ mild nonspecific infectious vs inflammatory colitis, GI consulted and placed on IVF, abx w/ Ceftriaxone and Flagyl IV and stool studies w/ cdiff and biofire obtained which were negative. Lactic 0.9 GI rec to dc abx, were stopped on 11/15 WBC normalized/afebrile Diet advanced to full liquid --> low fiber evening 11/15 but had worse pain/diarrhea and backed to full liquid. WBC elevation noted to 13k w/ temp 37.6C but patient reports feeling well/cramping today but requesting to go home and feeling well when seen Discussed w/ GI ELIAZAR, Bentyl 10mg TID for spasm type discomfort, can advance to low fiber for lunch and if tolerated dc w/ low fiber diet and OP C-scope as prior rec but if any worsening would recommend staying. If stay/worsening leukocytosis or fever, recs for repeat imaging (or return if tolerates diet and goes home and develops symptoms) Potential dc after lunch vs continued inpatient stay pending tolerance -- tolerated advancement, vanita rx Bentyl 10mg TID and discussed to return if any worsening sx/fever/abd pain or bleeding Outpatient scope w/ [facility] group planned, CM Navigator to send referral #HTN CCB initially held to prevent hypoperfusion and Bps stable and amlodipine has been resumed and BP stable 112/74 #HLD resumed/continue Atorvastatin 80 mg daily now that no longer NPO and can continue at dc #Obesity, on Mounjaro: Has been on Mounjaro for several months w/ recent increase to 15 mg dosing on 10/31 with last dose 11/06. Has had intermittent nausea but no vomiting on medication Hold Mounjaro, f/u discussion w/ PCP but would continue to hold at [facility] until discussed DVT Prophylaxis: SCDS, ambulation Dispo: discharge on LOW fiber diet, outpt GI f/u Notes For Next Care Provider Return sx to ER discussed, no abx per GI at this time, low fiber diet to be continued at [facility] for next 1-2 wks. Should have outpatient scope 1-2 months, ref to [facility] group by case management at [place] to occur and should ensure undertaken given family hx and overdue for such. Does have cholelithiasis but LFTs wnl and no RUQ pain. Monitor for any issues. Medication Changes From Visit Bentyl 10mg TID Admission HPI Per Admitting Provider Ms. Palacios is a 64 y/o female with PMHx of HTN, HLD, Obesity on Mounjaro, and TIA (approx. 15 years ago) who developed acute onset of diffuse abdominal pain around 2 AM this AM. She had a couple episodes of diarrhea and then noted BRBPR with mucous stools after. She has not had further diarrhea but continues to have urgency with just mucous. Abdominal pain has never localized and remains d iffuse. She has been on Mounjaro since approx. May and gradually increasing the dose. She had the dose increased 10/31 and last injection was on 06 November. She does note that she has had intermittent nausea described like morning sickness without vomiting and fluctuates with constipation/diarrhea while on this medication. She does still have intermittent nausea when the pain is worse but no vomiting today. She does report some hunger feelings but does not eat much since being on Mounjaro. She denies any sick contacts or recent travel. She does endorse feeling cold but no documented fevers. She has not had any similar episodes in the past. She has not had a recent colonoscopy as she was due last year. She has no history of Crohns/Ulcerative Colitis. Admission Exam Per Admitting Provider PHYSICAL EXAM General Appearance: WDWN in NAD but mildly ill appearing who is A&O x 3 HEENT: Head is normocephalic/atraumatic; Hearing grossly intact; Mucous membranes moist Neck: Supple; Trachea midline; Neg JVD Heart: RRR with no M/G/R Lungs: CTA in all lung mello bilaterally; Respirations unlabored; Neg accessory muscle use Abdomen: +bloating; diffuse tenderness but not acute abdomen; Positive BS x 4 quadrants Neurological: Speech clear; Gross motor/sensory function intact; Neg focal neurologic deficits Psychiatric: Appropriate mood/affect Skin: Normal Color; Warm/Dry; Neg rashes Discharge Exam General: 64yo female sitting up in chair, NAD, wanting to eat HEENT: head atraumatic, normocephalic, mm stable/improved Resp: even/unlabored, no wheezing/rales, 95% on RA CV: regular, rates 90s, no significant m/r/g, no pitting edema GI: +BS, soft, generalized lower cramping but no overt tenderness/guarding or rigidity : no capps MSK/Neuro: nonfocal, answering questions appropriately, not confused Psych: AOx3, cooperative with exam Discharge Plan Discharge Items Patient Disposition: Home - Self-Care Reason For Visit: SUSPECTED ISCHEMIC COLITIS Discharge Diagnosis: Colitis Condition on Discharge: Good Goals: You have been hospitalized for an acute medical problem. During your stay at , we have made an effort to correct the problem that brought you to the hospital while keeping you as comfortable as possible. Medications were used to bring your condition under control and your discharge instructions will include directions for any medications you should take after leaving the hospital. Please make sure you see your Primary Care Provider as part of your follow up plan. Activity: As commented below Non-emergency contact: Primary Care Provider and Insurance Producer Call non-emergency contact if: you have any medication questions, your symptoms worsen, your pain is not controlled, your pain is concerning for you and you have a fever Follow-up/Referrals: Karen Carnes Jr, MD [Physician] - Emely Zhang DO [Primary Care Provider] - Diet: Low Fiber Addtl Attending Provider Instructions: You have been hospitalized for blood diarrhea and abdominal pain. GI was consulted given concerns for ischemic colitis and antibiotics were stopped and diet has been advanced and should be self limited and resolve however if you have return of abdominal pain/fever/worsening bleeding should return to the ER for repeat imaging evaluation. You should continue LOW FIBER diet at discharge. GI recommended BENTYL for spasm, 10mg THREE TIMES DAILY for now, then can use as needed. Please follow up with primary care i the next week to monitor your status. Please return to the ER with any fever/chills, worsening abdominal pain, nausea/vomiting or inability to keep up with oral intake. We are sending referral to [facility] for outpatient colonoscopy as recommended in the next 4-6 wks given family history and being overdue for such. It has been a pleasure being a part of the medical team providing for you while you have been in the hospital. Take care! Stand-Alone Forms: My [facility], Smoking Cessation Medications and DC Order Prescriptions: New dicyclomine 10 mg Capsule 10 mg PO TID Qty: 90 0RF Continued atorvastatin 40 mg Tablet 80 mg PO DAILY amlodipine 5 mg Tablet 5 mg PO DAILY aspirin 81 mg Tablet,Delayed Release (Dr/Ec) 81 mg PO DAILY Held Mounjaro 15 mg/0.5 mL pen injector 15 mg subcut WK Hold Instructions: please hold until discussed with primary care provider Discharge Orders: Discharge Order (Routine); Ordered 11/16/24 Ordered By: Deborah Santiago Admission Data Admit Date/Time: 11/13/24 14:05 Attending Provider: Ajay Vu Admit Provider: Evert Rodriguez Primary Care Provider: Emely Zhang Other Providers: Evert Rodriguez; Karen Carnes Jr Other Interventions: Discharge Summary Assessment (RN) Last Done: 11/16/24 15:11 Hospital Stay Data Consultations 11/13/24 12:43 ED Decision to Admit Stat 11/13/24 14:42 Consult Gastroenterology Routine Diagnostic Imagining Performed Abdomen/Pelvis CT 11/13/24 09:[address] WITH IV CONTRAST CT DOSE: 1249.02 mGy.cm HISTORY: Acute generalized abdominal pain abd pain, frequent diarrhea, blood in stool TECHNIQUE: Multiaxial CT images of the abdomen and pelvis were performed following the IV administration of 93 cc of Optiray, A dose lowering technique was utilized adhering to the principles of ALARA. COMPARISON STUDY: None. FINDINGS: Mild cardiomegaly. Clear lung bases. There is no pneumatosis or pneumoperitoneum. Unremarkable spleen, pancreas and adrenal glands. Cholelithiasis without CT evidence of acute cholecystitis. Patency of the hepatic and portal veins. There are a few scattered hepatic cysts. No solid liver lesions are seen. Unremarkable kidneys. There is no hydronephrosis. 11 mm exophytic cyst of the anterior interpolar right kidney. Decompressed urinary bladder with mild wall thickening. Hysterectomy. Atherosclerosis of the aorta without aneurysm. There is no lymphadenopathy. Tiny hiatal hernia. There is no bowel obstruction. There is wall thickening noted throughout the transverse and descending colon with mild adjacent pericolonic stranding. No CT evidence of acute appendicitis. Tiny fat filled umbilical hernia. No acute fracture is seen. IMPRESSION: 1. Findings compatible with a mild nonspecific likely infectious or inflammatory colitis. 2. No bowel obstruction or pneumoperitoneum. 3. Cholelithiasis. ACT 112: Negative or not required by law. The above report was generated using voice recognition software. It may contain grammatical, syntax or spelling errors. Electronically signed by: Walt Robles M.D. 11/13/2024 11:50 AM Discharge Instructions Given to Patient (Per Discharging Provider) You have been hospitalized for blood diarrhea and abdominal pain. GI was consulted given concerns for ischemic colitis and antibiotics were stopped and diet has been advanced and should be self limited and resolve however if you have return of abdominal pain/fever/worsening bleeding should return to the ER for repeat imaging evaluation. You should continue LOW FIBER diet at discharge. GI recommended BENTYL for spasm, 10mg THREE TIMES DAILY for now, then can use as needed. Please follow up with primary care i the next week to monitor your status. Please return to the ER with any fever/chills, worsening abdominal pain, nausea/vomiting or inability to keep up with oral intake. We are sending referral to [facility] for outpatient colonoscopy as recommended in the next 4-6 wks given family history and being overdue for such. It has been a pleasure being a part of the medical team providing for you while you have been in the hospital. Take care! Supervising Physician Co-Signing Physician Notes The patient was not seen by me. The chart was reviewed. Case discussed with MARK Tilley. Agree with assessment and plan Total Time Total Time Spent Total Time Spent (In Minutes): 45 Coding Level of Care Code 78524 INP/OBS DISCH >30 MIN Diagnoses Colitis K52.9 Hypertension I10 Hyperlipidemia E78.5
== END 2024-11-16 18:01 | disposition home or self-care (01) | DRG 395 ==
LOC: ED 09:12 → SUATTDRO 14:05 → 2W 14:05

== ENCOUNTER 2025-07-01 10:03 | Inpatient (IN) ==
--- NOTE | 2025-07-01 10:43 | Emergency Department Note ---
Impression & Plan Abdominal pain, Colitis, GI bleed ED Provider Note ED Provider Note NAME: RADHA PLATA AGE:64 SEX: Female : 1960 ARRIVES VIA: private vehicle INFORMANT: Patient ED PROVIDER(s): Griselda Duke DO CHIEF COMPLAINT: abdoinal pain, GI bleed HPI: This is a 64-year-old female who presents to the emergency department due to concern for left-sided abdominal pain and GI bleed. Patient states symptoms began overnight. She states the pain was waxing waning and seemed worse before needing to have any bowel movement and better after. She states her bowel movements in the days leading up to yesterday and early this morning have been normal. She did previously have problems with constipation but has been on several medications as a bowel regimen to prevent this. She has been doing well. Patient states she had a similar episode on presentation back in the spring and had colitis. She states she did follow-up and have a colonoscopy. She states she was told that there was residual inflammation along the left side of her colon however there abnormalities. She states no other prior history of IBS, IBD, PUD. She states she does take a low-dose aspirin, no other anticoagulation. She states she was nauseated earlier from pain but did not vomit. She denies fevers or chills. No recent change in diet occasions. No recent travel. PAST MEDICAL HISTORY:See Below PAST SURGICAL HISTORY:See Below FAMILY HISTORY:See Below SOCIAL HISTORY:See Below HOME MEDICATIONS:See Below ALLERGIES:See Below VITALS:See Below PHYSICAL EXAMINATION: GENERAL: alert, well appearing, well nourished, no distress, non-toxic EYE EXAM: normal conjunctiva, PERRL and EOM's grossly intact OROPHARYNX: no exudate, no erythema, lips, buccal mucosa, and tongue normal and mucous membranes are moist NECK: supple, no nuchal rigidity, no adenopathy, non-tender LUNGS: Clear to auscultation. Normal chest wall mechanics, no w/r/r HEART: no murmurs, S1 normal and S2 normal ABDOMEN: abdomen soft, non-tender, normo-active bowel sounds, no masses, no rebound or guarding. SKIN: no rashes, petechiae, orbruising UPPER EXTREMITIES: upper extremities are grossly normal. FROM, nml pulses b/l. LOWER EXTREMITIES: No pitting edema. FROM, nml pulses b/l. NEURO EXAM: Normal sensorium, cranial nerves II-XII grossly intact, normal speech, no facial droop,nogross weakness of arms, no gross weakness of legs. Gross sensation intact. No ataxia. Vital Signs: reviewed and remarkable Differential Diagnosis: diverticulosis, AVM, coagulopathy, colitis, inflammatory bowel disease, malignancy, Brenna-David tear, esophagitis, peptic ulcer disease, variceal bleed, gastritis, epistaxis, fissure, hemorrhoids, as well as others were entertained. MEDICAL DECISION MAKING: This is a 64-year-old female presents the emergency department with abrupt onset left-sided abdominal pain, diarrhea with obvious blood, and accompanying nausea. She was afebrile and hemodynamically stable on arrival. Labs drawn and sent, IV established patient was given fluids here. She was started on IV fluids and given IV Tylenol. Patient sent for CT of abdomen pelvis. Patient denies any recent travel or sick contact. No new medications although does note she had restarted her Mounjaro back in February. She is concerned that her Mounjaro could have caused a episode of ischemic colitis which she had earlier this year. Patient CT was positive for colitis and a distribution that radiology notes could be consistent with ischemic colitis. Patient had improvement of her symptoms while here. Patient with stable H&H, no elevation of lactic acid and no significant leukocytosis. She had no recurrent episodes of bleeding. I did reach out to on-call GI to inquire regarding antibiotics or other acute interventions. They do not recommend antibiotics and recommend low-dose aspirin however patient does already take that due to prior history of a TIA. Case discussed with hospitalist team for additional evaluation and monitoring. Consultation(s): 1432: Discussed with Dr. Padilla via [employer]. Does not recommend antibiotics. Recommends low dose ASA if not already on one. ER Treatment Provided: See below Diagnostics Interpreted By Me: -Cardiac Monitoring: An order was placed for continuous cardiac monitoring. The monitor shows a rate of 78 with normal sinus rhythm. -Laboratory studies: As stated above and show below. -Imaging studies: CT a/p - no sbo, no perf Triage Nursing Note Reviewed Prior/Outside Records Reviewed - DC summary from November 2024 reviewed Past Med/Surg History Problem List (Updated 07/01/25 @ 15:33 by Griselda Duke DO) GI bleed (Acute) Colitis (Acute) Abdominal pain (Acute) Bloody diarrhea (Acute) Abdominal pain, acute, generalized (Acute) Colitis (Acute) Encounter for pre-operative examination Fibroids (Chronic) Menorrhagia (Chronic) Transient ischemic attack (TIA) (Acute) Medical History (Updated 07/01/25 @ 15:33 by Griselda Duke DO) Morbid obesity Hypothyroidism Hearing deficit BL HENDERSON Hypertension Hyperlipidemia Surgical History History of total abdominal hysterectomy and bilateral salpingo-oophorectomy History of tubal ligation History of tonsillectomy History of colonoscopy Family History Brother Family hx of colon cancer Social History Smoking Status: Never smoker Second Hand Exposure: No; Do You Dip or Chew Tobacco: No; Hx Alcohol Use: No Hx Substance Use: No Preferred Language: Bengali Communication Ability: Effective Ship Rigger Required: No Beliefs That Will Affect Care: None Current Living Situation: Spouse Feels Safe at Home: Yes Assistive Devices: Glasses Allergies Allergies Allergy/AdvReac Type Severity Reaction Status Date / Time No Known Allergies Allergy Unknown NONE Verified 02/16/19 07:14 Home Meds Home Medications Medication Instructions Recorded Confirmed amlodipine 5 mg tablet 5 mg PO DAILY 01/12/19 07/01/25 aspirin 81 mg tablet,delayed 81 mg PO DAILY 01/12/19 07/01/25 release atorvastatin 40 mg tablet 80 mg PO DAILY 01/12/19 07/01/25 tirzepatide 10 mg/0.5 mL 10 mg subcut WK 07/01/25 07/01/25 subcutaneous pen injector (Shani) Results & Data (ED) Vital Signs Vital Signs - 24 hr 07/01/25 10:06 07/01/25 10:16 07/01/25 11:04 Temperature 36.3 C L Temperature Source Temporal Artery Scan Pulse Rate 105 H Pulse Rate [Finger] 87 Respiratory Rate 18 18 Respiratory Effort / Characteristics Non-Labored Non-Labored Respiratory Depth Normal Normal Respiratory Pattern Regular Blood Pressure 149/85 H Blood Pressure [Right Arm] 125/72 Blood Pressure Mean 106 Blood Pressure Mean [Right Arm] 89 Blood Pressure Position [Right Arm] Semi-fowlers Pulse Oximetry 99 98 Oxygen Delivery Method Room Air Room Air Sepsis New/Unexplained Change in Mental Status No Sepsis Action Taken by Nursing No Action Required 07/01/25 13:30 07/01/25 14:53 07/01/25 15:00 Temperature Temperature Source Pulse Rate 85 Pulse Rate [Finger] 84 80 Respiratory Rate 16 18 Respiratory Effort / Characteristics Non-Labored Spontaneous Non-Labored Spontaneous Respiratory Depth Normal Normal Respiratory Pattern Regular Regular Blood Pressure Blood Pressure [Right Arm] 108/70 139/78 Blood Pressure Mean Blood Pressure Mean [Right Arm] 82 98 Blood Pressure Position [Right Arm] Pulse Oximetry 97 98 Oxygen Delivery Method Room Air Room Air Sepsis New/Unexplained Change in Mental Status Sepsis Action Taken by Nursing Laboratory Data 07/02/25 07:00 07/02/25 07:00 Lab Results 07/01/25 07/01/25 Range/Units 10:43 11:06 WBC 9.91 (4.8-10.8) K/ul RBC 5.16 (4.20-5.40) M/uL Hgb 14.8 (12.0-16.0) g/dL Hct 43.4 (37.0-47.0) % MCV 84.1 (80.0-100.0) fL MCH 28.7 (25.0-34.0) pg MCHC 34.1 (32.0-36.0) g/dL RDW Std Deviation 40.9 (36.4-46.3) fL RDW Coeff of Delon 13.2 (11.5-14.5) % Plt Count 294 (130-400) K/uL MPV 9.9 (9.4-12.4) fL Immature Gran % (Auto) 0.3 % Neut % (Auto) 73.8 % Lymph % (Auto) 20.0 % Whiteside % (Auto) 5.0 % Eos % (Auto) 0.5 % Baso % (Auto) 0.4 % Neut # (Auto) 7.31 H (1.40-6.50) K/uL Lymph # (Auto) 1.98 (1.20-3.40) K/uL Whiteside # (Auto) 0.50 (0.11-0.59) K/uL Eos # (Auto) 0.05 (0.00-0.50) K/uL Baso # (Auto) 0.04 (0.00-0.20) K/uL Immature Gran # (Auto) 0.03 (0.01-0.20) K/uL Sodium 138 (136-145) mmol/L Potassium 4.1 (3.5-5.1) mmol/L Chloride 106 (98-107) mmol/L Carbon Dioxide 25 (21-32) mmol/L Anion Gap 7 (3-11) BUN 17 (6-23) mg/dl Creatinine 0.78 (0.6-1.2) mg/dl Est Cr Clr Drug Dosing 75.5 ml/min eGFR 85.82 BUN/Creatinine Ratio 21.8 H (10-20) Glucose 102 H (70-99(Fasting)) mg/dl Lactate 0.8 (0.4-2.0) mmol/L Calcium 9.4 (8.6-10.3) mg/dl Magnesium 2.2 (1.7-2.4) mg/dl Total Bilirubin 0.8 (0.2-1.0) mg/dl AST 26 (13-39) U/L ALT 28 (7-52) U/L Alkaline Phosphatase 73 (34-104) U/L Total Protein 7.5 (6.0-8.3) gm/dl Albumin 4.5 (3.4-5.0) gm/dl Globulin 3.0 (2.5-4.0) gm/dl Albumin/Globulin Ratio 1.5 (0.9-2) Lipase 53 (11-82) U/L Administered Medications Amlodipine Besylate (Amlodipine Besylate 5 Mg Tab) 5 mg PO PM KANDICE Stop: 07/31/25 22:59 Last Admin: 07/01/25 23:14 Dose: 5 mg Documented By: NCM Aspirin (Aspirin 81 Mg Ectab) 81 mg PO PM KANDICE Stop: 07/31/25 22:59 Last Admin: 07/01/25 23:14 Dose: 81 mg Documented By: NCM Atorvastatin Calcium (Atorvastatin 40 Mg Tab) 80 mg PO PM KANDICE Stop: 07/31/25 22:59 Last Admin: 07/01/25 23:14 Dose: 80 mg Documented By: NCM Sodium Chloride (Nss) 1,000 mls @ 125 mls/hr IV .Q8H KANDICE Stop: 07/04/25 14:14 Last Admin: 07/02/25 08:12 Dose: Not Given Documented By: Infusion: 07/02/25 08:11 Dose: Infused Documented By: Admin: 07/01/25 23:14 Dose: 125 mls/hr Documented By: Admin: 07/01/25 14:45 Dose: Not Given Documented By: BILL Discontinued Medications Dicyclomine HCl (Dicyclomine Hcl 10 Mg Cap) 10 mg PO NOW ONE Stop: 07/01/25 14:37 Last Admin: 07/01/25 14:45 Dose: 10 mg Documented By: BILL Sodium Chloride (Nss) 1,000 mls @ 125 mls/hr IV .Q8H KANDICE Stop: 07/04/25 10:44 Last Admin: 07/01/25 20:59 Dose: Not Given Documented By: Infusion: 07/01/25 20:59 Dose: Infused Documented By: Admin: 07/01/25 11:11 Dose: 125 mls/hr Documented By: BILL Acetaminophen (Ofirmev) 1,000 mg in 100 mls @ 400 mls/hr IV NOW STA Stop: 07/01/25 10:59 Last Infusion: 07/01/25 13:38 Dose: Infused Documented By: Admin: 07/01/25 11:09 Dose: 400 mls/hr Documented By: BILL Ceftriaxone Sodium (Rocephin) 2,000 mg in 50 mls @ 100 mls/hr IV NOW STA Stop: 07/01/25 14:53 Last Admin: 07/01/25 14:37 Dose: Not Given Documented By: BILL Metronidazole (Flagyl) 500 mg in 100 mls @ 100 mls/hr IV NOW STA; Protocol Stop: 07/01/25 15:23 Last Admin: 07/01/25 14:37 Dose: Not Given Documented By: BILL Ioversol (Optiray 320 125ml) 112 ml IV ONCE ONE Stop: 07/01/25 12:13 Last Admin: 07/01/25 12:12 Dose: 112 ml Documented By: JH Imaging Data Radiologist's Impression: Abdomen/Pelvis CTA 07/01/25 10:43 CT OF THE ABDOMEN AND PELVIS WITHOUT CONTRAST AND CT ANGIOGRAPHY OF THE ABDOMEN AND PELVIS CLINICAL HISTORY: GI bleed, LLQ pain; hx ischemic colitis COMPARISON STUDY: CTA of the abdomen and pelvis February 20, 2025. TECHNIQUE: Unenhanced, venous and arterial phase imaging of the abdomen and pelvis was performed. Intravenous injection of 112 cc of Optiray 320 IV was uneventful. Sagittal and coronal reformats were viewed as well as maximal intensity projections on an independent 3-D workstation. A dose lowering technique was utilized adhering to the principles of ALARA. FINDINGS: Visualized lung bases are unremarkable. There is no pneumatosis, free air or portal venous gas. Caliber of the abdominal aorta is normal. There is moderate atherosclerotic plaque within the abdominal aorta. The celiac axis, superior mesenteric artery and inferior mesenteric arteries are patent. The renal arteries are patent. The bilateral common iliac, internal iliac, external iliac and common femoral arteries are patent. Liver, spleen, adrenal glands, kidneys and pancreas are unremarkable. There is a gallstone within the gallbladder. No evidence for acute cholecystitis. Moderate circumferential wall thickening of the distal transverse colon, splenic flexure of the colon and descending colon is noted with mild pericolonic inflammation. No intraluminal contrast is identified to suggest active GI bleed. IMPRESSION: 1. Findings consistent with a left-sided colitis, as described above. Although nonspecific, this distribution is suggestive of ischemic colitis. 2. No intraluminal contrast to suggest active GI bleed by CT. 3. Patent mesenteric vessels. Moderate plaque within the abdominal aorta. ACT 112: Negative or not required by law. Electronically signed by: Mio Daley M.D. 07/01/2025 1:05 PM Discharge Plan Visit Data Chief Complaint: GI Assessment Stated Complaint: COLITIS FLARE UP ED Provider: Griselda Duke Discharge Problem: Abdominal pain, Colitis, GI bleed Patient Disposition: Admitted As Inpatient Condition: Fair Discharge Instructions Interventions: ED Discharge Assessment Last Done: 07/01/25 20:24
[2025-07-01 11:01] LABS: Hematocrit (blood only) 43.4 % (37.0-47.0); Hemoglobin 14.8 g/dL (12.0-16.0); Immature Granulocytes # (auto) 0.03 K/uL (0.01-0.20); Immature Granulocytes % (auto) 0.3 %; Mean Corpuscular Hemoglobin 28.7 pg (25.0-34.0); Mean Corpuscular Volume 84.1 fL (80.0-100.0); Platelet Count 294 K/uL (130-400); RDW Standard Deviation 40.9 fL (36.4-46.3); Red Blood Count 5.16 M/uL (4.20-5.40); White Blood Count 9.91 K/ul (4.8-10.8)
[2025-07-01] MEDS: ACETAMINOPHEN 1,000 MG/100 ML VIAL IV STA (11:09)
[2025-07-01] MEDS: SODIUM CHLORIDE 0.9% 1,000 ML IV SCH ×2 (11:11→14:45)
[2025-07-01 11:38] LABS: Alanine Aminotransferase 28.0 U/L (7-52); Albumin Globulin Ratio 1.5 (0.9-2); Albumin Level 4.5 gm/dl (3.4-5.0); Alkaline Phosphatase 73.0 U/L (34-104); Anion Gap 7.0 (3-11); Bilirubin,Total 0.8 mg/dl (0.2-1.0); Blood Urea Nitrogen 17.0 mg/dl (6-23); Calcium 9.4 mg/dl (8.6-10.3); Carbon Dioxide 25.0 mmol/L (21-32); Chloride 106.0 mmol/L (98-107); Creatinine Clr Calc Pharmacy 75.5 ml/min; Globulin 3.0 gm/dl (2.5-4.0); Glucose 102.0 mg/dl (70-99(Fasting)); Lipase 53.0 U/L (11-82); Magnesium 2.2 mg/dl (1.7-2.4); Potassium 4.1 mmol/L (3.5-5.1); Sodium 138.0 mmol/L (136-145); Total Protein 7.5 gm/dl (6.0-8.3)
[2025-07-01] MEDS: OPTIRAY 320 125ml IV ONE (12:12)
--- NOTE | 2025-07-01 13:07 | CT Scan Report ---
CT OF THE ABDOMEN AND PELVIS WITHOUT CONTRAST AND CT ANGIOGRAPHY OF THE ABDOMEN AND PELVIS CLINICAL HISTORY: GI bleed, LLQ pain; hx ischemic colitis COMPARISON STUDY: CTA of the abdomen and pelvis February 20, 2025. TECHNIQUE: Unenhanced, venous and arterial phase imaging of the abdomen and pelvis was performed. Int ravenous injection of 112 cc of Optiray 320 IV was uneventful. Sagittal and coronal reformats were vi ewed as well as maximal intensity projections on an independent 3-D workstation. A dose lowering tech nique was utilized adhering to the principles of ALARA. FINDINGS: Visualized lung bases are unremarkable. There is no pneumatosis, free air or portal venous gas. Caliber of the abdominal aorta is normal. There is moderate atherosclerotic plaque within the ab dominal aorta. The celiac axis, superior mesenteric artery and inferior mesenteric arteries are paten t. The renal arteries are patent. The bilateral common iliac, internal iliac, external iliac and comm on femoral arteries are patent. Liver, spleen, adrenal glands, kidneys and pancreas are unremarkable. There is a gallstone within the gallbladder. No evidence for acute cholecystitis. Moderate circumfer ential wall thickening of the distal transverse colon, splenic flexure of the colon and descending co annalisa is noted with mild pericolonic inflammation. No intraluminal contrast is identified to suggest ac tive GI bleed. IMPRESSION: 1. Findings consistent with a left-sided colitis, as described above. Although nonspecific, this dist ribution is suggestive of ischemic colitis. 2. No intraluminal contrast to suggest active GI bleed by CT. 3. Patent mesenteric vessels. Moderate plaque within the abdominal aorta. ACT 112: Negative or not required by law. Electronically signed by: Mio Daley M.D. 07/01/2025 1:05 PM
[2025-07-01] MEDS: metroNIDAZOLE 500 MG/100 ML BAG IV STA (14:37)
[2025-07-01] MEDS: cefTRIAXone SODIUM 2,000 MG/50 ML BAG IV STA (14:37)
[2025-07-01] MEDS: DICYCLOMINE HCL 10 MG CAP PO ONE (14:45)
--- NOTE | 2025-07-01 15:48 | History & Physical Report ---
Date of Service July 01, 2025 Assessment & Plan (1) Colitis: (2) Hypertension: (3) Hyperlipidemia: Plan Hanna is a 64yo woman with PMH including HTN, HLD, possible TIA, and recent admission for ischemic colitis (11/13-11/16/2024) who presented to the ER on 07/01 after several episodes of bloody diarrhea. CT A/P was consistent with recurrence of ischemic colitis. She is being admitted for supportive care and further workup. #Colitis - Pt with admission for ischemic colitis in October, presenting with crampy abd pain and diarrhea w/ blood and mucus - CTAP: consistent with left-sided colitis; distribution suggestive of ischemic colitis. No evidence of active GI bleed. Patent mesenteric vessels. Moderate plaque within the abdominal aorta. - GI consulted, appreciate input - Given recurrence, consulted Vascular to determine if any definitive tx is possible - No indication for abx currently - Continue aspirin 81mg daily - PRN tylenol 1g IV for mild-mod pain, 0.25mg Dilaudid for severe - PRN Zofran. BID Protonix - Start on clear liquids, ADAT. Continue mIVF #HTN - continue amlodipine 5mg daily #HLD - continue atorvastatin 80mg daily VTE ppx: ambulation Diet: clears Dispo: med --> home History of Present Illness Primary Care Provider: Emely Stevenson DO Hanna is a 64yo woman with PMH including HTN, HLD, possible TIA, and recent admission for ischemic colitis (11/13-11/16/2024). She presents to the ER today after several episodes of bloody diarrhea. After last admission, she was discharged with Bentyl but reports never taking it. Per [facility] records, had colonoscopy on 12/28 w bx of inflamed segments erythematous mucosa that was consistent with ischemic colitis. F/u CTAP in February did not show inflammation or other abnormality. Patient was having normal BMs and had no infectious illness or GI distress since discharge until today. Woke at 2am with crampy abdominal pain. Had large BM, normal stool color and caliber. [place] better and went back to bed ~2:45. Woke again around 3am with same sx. Again, felt better after BM. Sx repeated a third time at 4am, each episode with increasingly watery stool. Finally woke at 6:30 am since then had diarrhea with just blood and mucus, no stool, approximately every 30-60 minutes. Reports recurrent crampy abdominal pain, initially centralized but then localized to left, that improves after each BM. Also mentions having chills/rigors, but no fever. Some nausea during the first (2am) episode but none since, and no vo miting. No major change in diet. No recent travel. No sick contacts. Patient has seen GI since last admission; In the ER, she was given IV Tylenol and 1L nss as well as dicyclomine, Rocephin and Flagyl. She denies any current pain or discomfort. No nausea or vomiting. Reports having no BMs since arrival at ER around 10am. Allergies Allergy/AdvReac Type Severity Reaction Status Date / Time No Known Allergies Allergy Unknown NONE Verified 02/16/19 07:14 Home Medications Medication Instructions Recorded Confirmed Type amlodipine 5 mg tablet 5 mg PO DAILY 01/12/19 07/01/25 History aspirin 81 mg tablet,delayed 81 mg PO DAILY 01/12/19 07/01/25 History release atorvastatin 40 mg tablet 80 mg PO DAILY 01/12/19 07/01/25 History tirzepatide 10 mg/0.5 mL 10 mg subcut WK 07/01/25 07/01/25 History subcutaneous pen injector (Mounjaro) Past Med/Surg History Problem List (Updated 07/01/25 @ 15:33 by Griselda Duke DO) GI bleed (Acute) Colitis (Acute) Abdominal pain (Acute) Bloody diarrhea (Acute) Abdominal pain, acute, generalized (Acute) Colitis (Acute) Encounter for pre-operative examination Fibroids (Chronic) Menorrhagia (Chronic) Transient ischemic attack (TIA) (Acute) Medical History (Updated 07/01/25 @ 15:33 by Griselda Duke DO) Morbid obesity Hypothyroidism Hearing deficit BL HENDERSON Hypertension Hyperlipidemia Surgical History History of total abdominal hysterectomy and bilateral salpingo-oophorectomy History of tubal ligation History of tonsillectomy History of colonoscopy Family History Brother Family hx of colon cancer Social History Smoking Status: Former smoker Second Hand Exposure: No; Do You Dip or Chew Tobacco: No; Hx Alcohol Use: No Hx Substance Use: No Preferred Language: Bruneian Communication Ability: Effective Senior Financial Accountant Required: No Beliefs That Will Affect Care: None Current Living Situation: Spouse Feels Safe at Home: Yes Assistive Devices: None Review of Systems Review of Systems: Full ROS conducted and negative except as noted in HPI. Physical Exam Physical Exam: Gen: NAD, WD/WN HEENT: NCAT, normal conjunctiva, MMM CV: RRR, no m/r/g, normal S1/S2, no LE edema Resp: CTAB, symmetrical chest rise, breathing unlabored Abd: Soft, NT/ND, +BS, no masses MSK: Full ROM, no gross deformities on inspection Skin: Warm, dry, well-perfused, no rashes Neuro: AOx3, CN II-XII grossly intact, no focal deficits Psych: Full, euthymic affect. Speech pace and thought content normal. Results & Data Results & Data Vital Signs (Past 12 Hours) Vital Signs Temp Pulse Pulse Resp BP BP Pulse Ox 07/01/25 15:00 80 18 139/78 98 07/01/25 14:53 85 07/01/25 13:30 84 16 108/70 97 07/01/25 11:04 87 18 125/72 98 07/01/25 10:06 36.3 C L 105 H 18 149/85 H 99 O2 Del Method 07/01/25 15:00 Room Air 07/01/25 14:53 07/01/25 13:30 Room Air 07/01/25 11:04 Room Air 07/01/25 10:06 Room Air Supervising Physician Co-Signing Physician Notes I personally examined the patient and verified all umana points of history and exam, discussed case, and agree with decision making with Dr Rodriguez abdominal pain and diarrhea through the night followed by bloody diarrhea followed by resolution of abdominal pain. Fortunately not nearly as severe or long-lasting as her episode back in October/November. Vitals noted, in general she is awake and alert pleasant fatigued no distress. HEENT normocephalic atraumatic mucous membranes moist. Breathing unlabored no accessory muscle use good effort. Skin without rashes pallor or icterus. Labs and diagnostics reviewed and discussed with patient and . Recurrent ischemic colitiswill ask vascular to see her in case there is anything that could be amendable to intervention, although I discussed with patient and I do not think there is anything overwhelmingly sobut also discussed that it is not directly in my expertise so I will appreciate vascular opinion. Also discussed that given how little she hydrates p.o., that could easily be a contributing factor as well. Discussed hydration goals and strategies. Otherwise as above. Resident Activity Tracking Resident Involvement: Resident Care Provided Care Provided: Adult Hospital Medicine
--- NOTE | 2025-07-01 17:47 | Billing Data ---
Date of Service July 01, 2025 Coding Level of Care Code 77546 INT INP/OBS CARE
[2025-07-01] MEDS ORDERED: POLYETHYLENE (MIRALAX) 17 GM PACK PO PRN (20:47)
[2025-07-01] MEDS ORDERED: ACETAMINOPHEN 325 MG TAB PO PRN (20:47)
[2025-07-01] MEDS ORDERED: ALUMINUM/MAGNESIUM SUSP 30 ML UDC PO PRN (20:47)
[2025-07-01] MEDS ORDERED: ONDANSETRON INJ 2 MG/ML 2 ML VIAL IV PRN (20:47)
[2025-07-01] MEDS ORDERED: MELATONIN 3 MG TAB PO PRN (20:47)
[2025-07-01] MEDS ORDERED: HYDROmorphone INJ 0.5 MG/0.5 ML SYR IV PRN (20:47)
[2025-07-01] MEDS ORDERED: Nursing to Pharmacy Communication SCH (23:00)
[2025-07-01] MEDS: ASPIRIN 81 MG ECTAB PO SCH (23:14)
[2025-07-01] MEDS: ATORVASTATIN 40 MG TAB PO SCH (23:14)
--- NOTE | 2025-07-02 07:03 | Hospitalist Progress Note ---
Date of Service July 02, 2025 Assessment & Plan (1) Colitis: (2) Hypertension: (3) Hyperlipidemia: Plan Hanna is a 64yo woman with PMH including HTN, HLD, possible TIA, and recent admission for ischemic colitis (11/13-11/16/2024) who presented to the ER on 07/01 after several episodes of bloody diarrhea. CT A/P was consistent with recurrence of ischemic colitis. She is admitted for supportive care and further workup. She will be safe for discharge home when BMs normalize and appropriate tx plan is established. #Colitis - Pt with admission for ischemic colitis in October, presenting with crampy abd pain and diarrhea w/ blood and mucus - CTAP: consistent with left-sided colitis; distribution suggestive of ischemic colitis. No evidence of active GI bleed. Patent mesenteric vessels. Moderate plaque within the abdominal aorta. - GI consulted, appreciate input - Given recurrence, consulted Vascular to determine if any definitive tx is possible - No indication for abx currently - Continue aspirin 81mg daily - PRN tylenol 1g IV for mild-mod pain, 0.25mg Dilaudid for severe - PRN Zofran. BID Protonix - Tolerating clear liquids. mIVF stopped. ADAT. #HTN - continue amlodipine 5mg daily #HLD - continue atorvastatin 80mg daily VTE ppx: ambulation Diet: clears Dispo: med --> home Admission and Anticipated Discharge Date Admission Date: July 01, 2025 Subjective NAEO. Patient seen and examined at bedside this morning. Reports feeling well. Has been tolerating clears. No BM since arrival. No chills, abd pain, n/v. Does report having to urinate too frequently overnight and feeling like her hands were puffy; requested stopping IVF since she's doing well PO. reported yesterday that she typically has very little fluid (maybe 20oz water daily?) at home; discussed importance of staying hydrated, especially if IVF stopped, and pt expressed understanding. Review of Systems Review of Systems: Full ROS conducted and negative except as noted in HPI. Physical Exam Physical Exam: Gen: NAD, WD/WN HEENT: NCAT, normal conjunctiva, MMM CV: RRR, no m/r/g, some swelling of fingers but not face or LE Resp: CTAB, symmetrical chest rise, breathing unlabored Abd: Soft, NT/ND, +BS, no masses MSK: Full ROM, no gross deformities on inspection Skin: Warm, dry, well-perfused, no rashes Neuro: AOx3, CN II-XII grossly intact, no focal deficits Psych: Full, euthymic affect. Speech pace and thought content normal. Results & Data Results & Data Vital Signs (Past 12 Hours) Vital Signs Temp Pulse Pulse Resp BP BP Pulse Ox 07/01/25 22:39 36.7 C 69 16 115/74 96 07/01/25 20:30 36.7 C 76 14 153/90 H 99 07/01/25 19:30 70 14 140/77 98 07/01/25 19:14 79 O2 Del Method 07/01/25 22:39 Room Air 07/01/25 20:30 Room Air 07/01/25 19:30 Room Air 07/01/25 19:14
[2025-07-02 07:12] LABS: Hematocrit (blood only) 37.8 % (37.0-47.0); Hemoglobin 12.6 g/dL (12.0-16.0); Mean Corpuscular Hemoglobin 28.2 pg (25.0-34.0); Mean Corpuscular Volume 84.6 fL (80.0-100.0); Platelet Count 205 K/uL (130-400); RDW Standard Deviation 41.7 fL (36.4-46.3); Red Blood Count 4.47 M/uL (4.20-5.40); White Blood Count 4.96 K/ul (4.8-10.8)
[2025-07-02 07:32] LABS: Anion Gap 5.0 (3-11); Blood Urea Nitrogen 7.0 mg/dl (6-23); Calcium 8.2 mg/dl (8.6-10.3); Carbon Dioxide 25.0 mmol/L (21-32); Chloride 110.0 mmol/L (98-107); Creatinine Clr Calc Pharmacy 102.7 ml/min; Glucose 80.0 mg/dl (70-99(Fasting)); Potassium 3.5 mmol/L (3.5-5.1); Sodium 140.0 mmol/L (136-145)
[2025-07-02] MEDS ORDERED: ASPIRIN 81 MG ECTAB PO SCH (09:00)
[2025-07-02] MEDS ORDERED: ATORVASTATIN 40 MG TAB PO SCH (09:00)
--- NOTE | 2025-07-02 10:43 | Consultation ---
Date of Consultation July 02, 2025 Assessment & Plan (1) Colitis: Pt with bloody diarrhea that has resolved since arrival. No abd pain. No sx of chronic mesenteric ischemia such as food fear, unintended weight loss, post prandial pain. Imaging reviewed with Dr Ochoa, negative for any significant mesenteric disease. No indications for vascular surgical intervention at this time. Recommend pt continue to follow with GI. Please call if needed. History of Present Illness Reason for Consultation: possible ischemic colitis Attending Physician: Kwaku Walker DO History of Present Illness 64 yo f with hx of HTN, hyperlipidemia, hypothyroidism, admitted with bloody diarrhea, seen in consultation today for possible ischemic colitis. Pt states she awoke yesterday with fecal urgency and noted bloody diarrhea with mucus. After several episodes, she came to [facility] ED for eval. No associated abd pain, N/V. Previously had a similar episode in October 2024, but had severe abd pain with that. States her sx have resolved since her arrival here, only 1 episode since admission. Pt states has been eating and drinking less since starting Mounjaro, as it does cause some nausea. Denies any post prandial pain, unintended weight loss, food fear. Still tries to eat 3 meals a day, limited by nausea. Feels she is somewhat dehydrated as well. Denies HENDERSON, fever, chest pain, cough, SOB, palpitations, rest pain, claudication, other complaints. CTA imaging demonstrates no significant SMA, celiac, or NILESH disease, but does demonstrate colitis. Allergies Allergy/AdvReac Type Severity Reaction Status Date / Time No Known Allergies Allergy Unknown NONE Verified 02/16/19 07:14 Home Medications Medication Instructions Recorded Confirmed Type amlodipine 5 mg tablet 5 mg PO DAILY 01/12/19 07/01/25 History aspirin 81 mg tablet,delayed 81 mg PO DAILY 01/12/19 07/01/25 History release atorvastatin 40 mg tablet 80 mg PO DAILY 01/12/19 07/01/25 History tirzepatide 10 mg/0.5 mL 10 mg subcut WK 07/01/25 07/01/25 History subcutaneous pen injector (Mounjaro) Patient History Medical History Morbid obesity Hypothyroidism Hearing deficit BL HENDERSON Hypertension Hyperlipidemia Surgical History History of total abdominal hysterectomy and bilateral salpingo-oophorectomy History of tubal ligation History of tonsillectomy History of colonoscopy Family History Brother Family hx of colon cancer Social History Smoking Status: Never smoker Second Hand Exposure: No; Do You Dip or Chew Tobacco: No; Hx Alcohol Use: No Hx Substance Use: No Preferred Language: Bulgarian Communication Ability: Effective Elevator Conductor Required: No Beliefs That Will Affect Care: None Current Living Situation: Spouse Feels Safe at Home: Yes Assistive Devices: Glasses Review of Systems Review of Systems: All systems reviewed & are unremarkable except as noted in HPI & below Physical Exam Constitutional: WD/WN, vitals as above + obese, healthy appearing, cooperative and comfortable; not in distress Neck: trachea midline Respiratory: normal respiratory effort, lungs clear to auscultation Auscultation: + diminished lung sounds Cardiovascular: Rate/Rhythm: regular rate and regular rhythm Vessels: femoral pulses present, posterior tibial pulses present and dorsalis pedis pulses present; + abnormal peripheral pulses Extremities: normal capillary refill; no edema Gastrointestinal (Abdomen): Inspection/Auscultation: abdomen normal to inspection and normal bowel sounds Percussion/Palpation: abdomen soft; abdomen nontender Musculoskeletal: no cyanosis or clubbing, extremities motor strength 5/5 Skin: no rashes, warm and dry Neurologic: moves all extremities and awake; no focal motor deficits and not confused Psychiatric: A+Ox3, euthymic affect Results & Data Vital Signs (Past 12 Hours) Vital Signs Temp Pulse Resp BP Pulse Ox O2 Del Method 07/02/25 07:06 36.5 C 75 17 101/63 07/01/25 22:39 36.7 C 69 16 115/74 96 Room Air
--- NOTE | 2025-07-02 12:37 | Gastrointestinal Consultation ---
Date of Consultation July 02, 2025 Assessment & Plan (1) Colitis: Plan Patient admitted with abdominal pain and bloody diarrhea with imaging suggestive of ischemic colitis. she reports recent colonoscopy through [facility]. she has seen resolution of symptoms since admission. - vascular to see patient and offer input. - recommend supportive care. - she can follow up with her regular spinning supervisor at [facility] on discharge. - Further recommendations to come with Supervising GI provider on medical rounds. Please see co-signature comments. Supervising Physician Co-Signing Physician Notes 64-year-old female with a history of ischemic colitis earlier this year. She had a follow-up colonoscopy. Then a subsequent CT scan. Diagnosed remained ischemic colitis. She was feeling well until this admission when she developed recurrent symptoms consistent with her previous ischemic colitis with abdominal pain and some rectal bleeding though this 1 was much milder. She is now asymptomatic. Hemoglobin went from 14-12. She had a CTA performed which shows patent SMA. This type of ischemia is small vessel watershed area. Typically ischemic colitis is a 1 and done issue though if the blood supply rem ains tenuous repeat episodes are possible. Management is hydration avoiding hypotension. Baby aspirin reasonable patient already takes. Avoiding NSAIDs decongestants smoking typically also recommended. Patient asymptomatic at present. Her abdomen is benign. Recommend feeding her. She can be discharged if tolerates. Follow-up with her usual treating spinning supervisor. History of Present Illness Reason for Consultation: ischemic colitis Requesting Physician: Amira Rodriguez MD Attending Physician: Kwaku Walker DO History of Present Illness Patient is a 64 year old female with a past medical history of HTN, HLD, possible TIA, and admission earlier this year for ischemic colitis (11/13- 11/16/2024) who presented to the ED on 07/01 after several episodes of bloody diarrhea with associated abdominal pain. CT A/P was consistent with recurrence of ischemic colitis. She was admitted for supportive care and further workup. She notes that this episode was much less severe than the one that was earlier this year. She notes that since admission, her abdominal pain and bleeding has resolved. After her last episode, she did undergo a colonoscopy that was reportedly unremarkable but I do not have these records. The remainder of the GI ROS were unremarkable. 07/02/25 wbc 4.96, hgb 12.6, hct 37.8, plts 205, Na 140, K 3.5, BUN 7, Cr 0.58. 07/01/25 LFTs wnl. lipase 53. CTA 07/01/25 1. Findings consistent with a left-sided colitis, as described above. Although nonspecific, this distribution is suggestive of ischemic colitis. 2. No intraluminal contrast to suggest active GI bleed by CT. 3. Patent mesenteric vessels. Moderate plaque within the abdominal aorta. Allergies Allergy/AdvReac Type Severity Reaction Status Date / Time No Known Allergies Allergy Unknown NONE Verified 02/16/19 07:14 Home Medications Medication Instructions Recorded Confirmed Type amlodipine 5 mg tablet 5 mg PO DAILY 01/12/19 07/01/25 History aspirin 81 mg tablet,delayed 81 mg PO DAILY 01/12/19 07/01/25 History release atorvastatin 40 mg tablet 80 mg PO DAILY 01/12/19 07/01/25 History tirzepatide 10 mg/0.5 mL 10 mg subcut WK 07/01/25 07/01/25 History subcutaneous pen injector (Mounjaro) Patient History Medical History Morbid obesity Hypothyroidism Hearing deficit BL HENDERSON Hypertension Hyperlipidemia Surgical History History of total abdominal hysterectomy and bilateral salpingo-oophorectomy History of tubal ligation History of tonsillectomy History of colonoscopy Family History Brother Family hx of colon cancer Social History Smoking Status: Never smoker Second Hand Exposure: No; Do You Dip or Chew Tobacco: No; Hx Alcohol Use: No Hx Substance Use: No Preferred Language: Brazilian Communication Ability: Effective Aircraft Structural Design Engineer Required: No Beliefs That Will Affect Care: None Current Living Situation: Spouse Feels Safe at Home: Yes Assistive Devices: None Review of Systems Review of Systems: All systems reviewed & are unremarkable except as noted in HPI & below Physical Exam Constitutional: WD/WN, vitals as above Respiratory: normal respiratory effort, lungs clear to auscultation Cardiovascular: Rate/Rhythm: regular rate and regular rhythm Gastrointestinal (Abdomen): normal bowel sounds, soft, nontender, no hepatosplenomegaly Psychiatric: Orientation: alert and oriented x 3 Affect: euthymic affect Results & Data Vital Signs (Past 12 Hours) Vital Signs Temp Pulse Resp BP 07/02/25 07:06 97.7 F 75 17 101/63 Coding Level of Care Code 95043 IN/OBS CONSULT LVL 3,45M Diagnoses Colitis K52.9
[2025-07-02 15:12] VITALS: BP 156/86; PULSE 84; RESP 16; TEMP 98.2; O2SAT 97
--- NOTE | 2025-07-02 17:49 | Discharge Summary ---
Date of Service July 02, 2025 Admission HPI Per Admitting Provider Hanna is a 64yo woman with PMH including HTN, HLD, possible TIA, and recent admission for ischemic colitis (11/13-11/16/2024). She presents to the ER today after several episodes of bloody diarrhea. After last admission, she was discharged with Bentyl but reports never taking it. Per [facility] records, had colonoscopy on 12/28 w bx of inflamed segments erythematous mucosa that was consistent with ischemic colitis. F/u CTAP in February did not show inflammation or other abnormality. Patient was having normal BMs and had no infectious illness or GI distress since discharge until today. Woke at 2am with crampy abdominal pain. Had large BM, normal stool color and caliber. [place] better and went back to bed ~2:45. Woke again around 3am with same sx. Again, felt better after BM. Sx repeated a third time at 4am, each episode with increasingly watery stool. Finally woke at 6:30 am since then had diarrhea with just blood and mucus, no stool, approximately every 30-60 minutes. Reports recurrent crampy abdominal pain, initially centralized but then localized to left, that improves after each BM. Also mentions having chills/rigors, but no fever. Some nausea during the first (2am) episode but none since, and no vomiting. No major change in diet. No recent travel. No sick contacts. Patient has seen GI since last admission; In the ER, she was given IV Tylenol and 1L nss as well as dicyclomine, Rocephin and Flagyl. She denies any current pain or discomfort. No nausea or vomiting. Reports having no BMs since arrival at ER around 10am. Principal Diagnosis ischemic colitis recurrence Discharge Exam Gen: NAD, WD/WN HEENT: NCAT, normal conjunctiva, MMM CV: RRR, no m/r/g, no LE edema Resp: CTAB, symmetrical chest rise, breathing unlabored Abd: Soft, NT/ND, +BS, no masses MSK: Full ROM, no gross deformities on inspection Skin: Warm, dry, well-perfused, no rashes Neuro: AOx3, CN II-XII grossly intact, no focal deficits Psych: Full, euthymic affect. Speech pace and thought content normal. Discharge Data Allergies Allergy/AdvReac Type Severity Reaction Status Date / Time No Known Allergies Allergy Unknown NONE Verified 02/16/19 07:14 Consultations 07/01/25 14:36 ED Decision to Admit Stat 07/01/25 20:47 Consult Gastroenterology Routine Consult Vascular Surgery Routine Ordered Studies 07/01/25 10:43 CT angio abd pelvis wo/w con Stat Hospital Course (1) Colitis: (2) Hypertension: (3) Hyperlipidemia: Plan Hanna is a 64yo woman with PMH including HTN, HLD, possible TIA, and recent admission for ischemic colitis (11/13-11/16/2024) who presented to the ER on 07/01 after several episodes of bloody diarrhea. CT A/P was consistent with recurrence of ischemic colitis. She is admitted for supportive care and further workup. She was deemed safe for discharge home when sx resolved and she was able to tolerate a regular diet. #Colitis - Pt with admission for ischemic colitis in October, presenting with crampy abd pain and diarrhea w/ blood and mucus - CTAP: consistent with left-sided colitis; distribution suggestive of ischemic colitis. No evidence of active GI bleed. Patent mesenteric vessels. Moderate plaque within the abdominal aorta. - GI consulted: management at this time is reasonable to focus on hydration to avoid hypotension - Given recurrence, consulted Vascular to determine if any definitive tx is possible; No indications for vascular surgical intervention at this time. - No infectious s/sx so not given abx - Given IV Tylenol for pain and IV fluids overnight. Started on clear liquid diet, advanced as tolerated until doing well with regular diet - Emphasized importance of hydration to pt and discussed appropriate goals. Continue aspirin. Recommend outpatient f/u with GI #HTN - continue amlodipine 5mg daily #HLD - continue atorvastatin 80mg daily Total Time Total Time Spent Total Time Spent (In Minutes): <30 Discharge Plan Discharge Items Patient Disposition: Home - Self-Care Reason For Visit: COLITIS Discharge Diagnosis: Ischemic colitis Condition on Discharge: Good Activity: Per Instructions section Non-emergency contact: Primary Care Provider Call non-emergency contact if: you have any medication questions and your symptoms worsen Follow-up/Referrals: Emely Zhang DO [Primary Care Provider] - (1 week after discharge) Diet: Regular Addtl Attending Provider Instructions: You came to the hospital after several episodes of bloody diarrhea, and you were admitted for recurrent ischemic colitis. You were treated with IV fluids and as- needed medications for pain and symptom control. Our GI and surgical garment inspector saw you during your stay and did not feel you need any acute intervention. Your diet was slowly advanced from clear liquids to regular, as your stomach could tolerate. You were deemed safe for discharge when having no bloody BMs and able to tolerate normal food. We discussed the importance of staying hydrated, and would recommend at least 60-80oz of fluid per day. It may take time to find the strategies that work best for you to remember to consistently hydrate, but please keep track of how much water, tea, etc. you are consuming. Medications Your medication list has been reviewed and reconciled. An updated list is included with your discharge paperwork; no major changes were made during this admission Take your medications as instructed; do not skip a dose. Make sure all of your doctors know every medicine you are taking (including [id number] medicines, vitamins, and supplements). Follow-up appointments: Make a follow-up appointment with your PCP within the next week. It is very important that you follow up with them shortly after discharge from the hospital. We recommend discussing altering your Mounjaro with them. It may be helpful to go back down to a dose that your GI system tolerated better, or to try a similar drug with a better side effect profile, such as Ozempic. Keep all your follow-up appointments as already scheduled. If you cannot make an appointment, notify your provider. Contact your PCP if your symptoms return or worsen. Call 911 or go to the ER if you experience any of the following: Sudden, severe abdominal pain or nausea/vomiting Severe chest pain, or chest pain that radiates (moves) to your jaw or arm Sudden, severe shortness of breath or difficulty breathing Thank you for allowing us to participate in your care. Pending Studies at Discharge: No Stand-Alone Forms: My [employer], Smoking Cessation Medications and DC Order Prescriptions: Continued atorvastatin 40 mg Tablet 80 mg PO DAILY amlodipine 5 mg Tablet 5 mg PO DAILY aspirin 81 mg Tablet,Delayed Release (Dr/Ec) 81 mg PO DAILY Mounjaro 10 mg/0.5 mL pen injector 10 mg SUBCUT WK Discharge Orders: Discharge Order (Routine); Ordered 07/02/25 Ordered By: Sveta Andrea/Other Patient Handouts: Ulcerative Colitis Dc, Understanding Colitis Admission Data Admit Date/Time: 07/01/25 16:41 Attending Provider: Kwaku Walker Admit Provider: Amira Rodriguez Primary Care Provider: Emely Zhang Other Providers: Kwaku Walker; Efrain Padilla; Bubba Ochoa Other Interventions: Discharge Summary Assessment (RN) Last Done: 07/02/25 17:42 Supervising Physician Co-Signing Physician Notes I personally examined the patient and verified all umana points of history and exam, discussed case, and agree with decision making with Dr Rodriguez feeling better. Tolerating clear liquids. Hoping to go home today. No further diarrhea no bleeding no abdominal pain. Vitals noted, in general she is awake and alert pleasant no distress. HEENT normocephalic atraumatic mucous membranes moist. Breathing unlabored no accessory muscle use good effort. Skin without rashes pallor or icterus. Neuro without focal deficits. Recurrent ischemic colitis - appreciate vascular inputunfortunately no significantly stenotic lesions that would benefit from intervention - appreciate GI input - reiterated hydrationafter discussion yesterday, I suspect that running chronically dehydrated, with a degree of mild to maybe moderate underlying vascular disease, is the main reason she has recurrent problems. It seems that at baseline she does not even drink 20 ounces of fluid on an average day, which could easily leave her prone to watershed hypotension with very little insult added. Discussed better hydration, discussed strategies. Close and ongoing outpatient follow-up. Resident Activity Tracking Resident Involvement: Resident Care Provided Care Provided: Adult [facility] Medicine
--- NOTE | 2025-07-02 18:08 | Billing Data ---
Date of Service July 02, 2025 Coding Level of Care Code 90637 IN/OBS DISCH 30 MIN/LESS
== END 2025-07-02 18:06 | disposition home or self-care (01) | DRG 394 ==
LOC: ED 10:03 → 3N 16:41